=== PATIENT | female | born 1985 | race African-American/Black ===

== ENCOUNTER 2020-12-01 04:13 | Emergency (ER) | payer BC, OTHER, SELFPAY ==
[2020-12-01 04:16] VITALS: BP 125/77; PULSE 79; RESP 16; TEMP 36.3; O2SAT 100
[2020-12-01] MEDS: diphenhydrAMINE HCl CAP 25 MG CAPSULE PO (04:29)
--- NOTE | 2020-12-01 04:30 | ED.EAR ---
HPI - Ear Problem General Chief complaint: Ear Stated complaint: right ear ringing Time Seen by Provider: 12/01/20 04:17 History of Present Illness HPI Narrative: Patient is a 35-year-old female who presents ER with right ear pain. Began just in the last couple of hours. No fevers or chills or sweats. No drainage from the ear. Denies sinus congestion/sore throat/productive cough. No dizziness or difficulty walking. Related Data Allergies Allergy/AdvReac Type Severity Reaction Status Date / Time Penicillins Allergy Swelling Verified 12/01/20 04:25 of Lip/Tongue/Throat Review of Systems Constitutional: Constitutional: Denies chills and Denies fever(s) ENT: Denies dizziness, Denies nasal congestion and Denies sore throat Comments: Right ear pain with tinnitus Respiratory: Respiratory: Denies cough and Denies dyspnea PMFSH Past Medical History Medical History (Updated 12/01/20 @ 04:32 by Martin Kaufman MD) Healthy female adult Surgical History Surgical History (Updated 12/01/20 @ 04:32 by Martin Kaufman MD) No history of previous surgery Social History Social History (Updated 12/01/20 @ 04:33 by Martin Kaufman MD) Smoking status: Light tobacco smoker Alcohol intake: current Substance use: never Exam Narrative: Exam Narrative: GENERAL: Well-appearing, well-nourished, and in no acute distress. HEAD: Normocephalic, atraumatic. ENT: TMs normal bilaterally. Ear canals free of cerumen. Mucous membranes moist. NECK: Supple. NEURO: Alert and oriented x3. PSYCH: Normal mood and affect. Course Vital Signs Vital signs: Vital Signs Temperature 97.4 F L 12/01/20 04:16 Pulse Rate 79 12/01/20 04:16 Respiratory Rate 16 12/01/20 04:16 Blood Pressure 125/77 12/01/20 04:16 Pulse Oximetry 100 12/01/20 04:16 Temperature 97.4 F L 12/01/20 04:16 Pulse Rate 79 12/01/20 04:16 Respiratory Rate 16 12/01/20 04:16 Blood Pressure 125/77 12/01/20 04:16 Pulse Oximetry 100 12/01/20 04:16 Medical Decision Making Vital Signs Vital Signs: Vital Signs Temperature 97.4 F L 12/01/20 04:16 Pulse Rate 79 12/01/20 04:16 Respiratory Rate 16 12/01/20 04:16 Blood Pressure 125/77 12/01/20 04:16 Pulse Oximetry 100 12/01/20 04:16 Temperature 97.4 F L 12/01/20 04:16 Pulse Rate 79 12/01/20 04:16 Respiratory Rate 16 12/01/20 04:16 Blood Pressure 125/77 12/01/20 04:16 Pulse Oximetry 100 12/01/20 04:16 Discharge Plan Discharge Clinical Impression: Ear pain Patient Disposition: Home, Self-Care Condition: Stable Additional Instructions: Your ear pain is likely being caused by pressure from your eustachian tube not draining. Take antihistamines to help with your swelling. Return to the ER if you have fever over 100.4 ?F, you have worsening pain, you have additional concerns. Prescriptions: New loratadine [Claritin] 10 mg tablet 10 mg PO DAILY Qty: 14 RF: 0 Follow-up/Referrals: PHYSICIAN NOT ON STAFF,NONSTAFF [Primary Care Provider] - 1 Week
== END 2020-12-01 04:45 | disposition home or self-care (01) ==
LOC: ANHED 04:37
PROVIDERS: Emergency Provider Emergency Medicine; PCP Internal Medicine Infectious Disease
DX: H92.01 Otalgia, right ear (principal); F17.210 Nicotine dependence, cigarettes, uncomplicated
CPT/HCPCS: 99283; A9270

== ENCOUNTER 2024-12-28 16:36 | Emergency (ER) | payer OTHER, SELFPAY ==
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
[2024-12-28 16:49] VITALS: BP 118/78; PULSE 79; RESP 20; TEMP 36.8; O2SAT 100
== END 2024-12-28 17:21 | disposition home or self-care (01) ==
PROVIDERS: Emergency Provider Registered Nurse; PCP Internal Medicine Infectious Disease
DX: S46.812A Strain of other muscles, fascia and tendons at shoulder and upper arm level, left arm, initial encounter (principal); S46.811A Strain of other muscles, fascia and tendons at shoulder and upper arm level, right arm, initial encounter; V59.40XA Driver of pick-up truck or van injured in collision with unspecified motor vehicles in traffic accident, initial encounter; F17.210 Nicotine dependence, cigarettes, uncomplicated
CPT/HCPCS: 99213; G0463

== ENCOUNTER 2024-12-30 10:46 | Outpatient (CLI) | payer BC, MEDICAID, SELFPAY ==
--- NOTE | ~2024-12-30 | MMUS_ITS ---
EXAMINATION: MM diagnostic jacobo BI w tiffanie, US breast BI complete HISTORY: Palpable bilateral breast lumps TECHNIQUE: Additional 3-D tomosynthesis images of the breasts were performed and synthetic 2-D images were generated. CAD analysis was submitted and interpreted. High resolution bilateral complete breas t ultrasound was performed. COMPARISON: None BREAST PARENCHYMAL COMPOSITION: Dense: The breasts are heterogeneously dense, which may obscure small masses FINDINGS: MAMMOGRAPHIC FINDINGS: There are no suspicious masses, calcifications or architectural distortion in either breast to sugges t malignancy. ULTRASOUND: Complete US of all 4 quadrants of the breast/s and retroareolar region was reviewed. Small bilateral breast cysts. No suspicious sonographic abnormalities to suggest malignancy. IMPRESSION: 1. No evidence for malignancy in either breast. 2. Routine yearly screening mammogram and regular clinical breast examination are recommended. BI-RADS Category 2: Benign finding(s). Reviewed, dictated and finalized at location B. IMPRESSION: 1. No evidence for malignancy in either breast. 2. Routine yearly screening mammogram and regular clinical breast examination a re recommended. BI-RADS Category 2: Benign finding(s).
--- OUTSIDE RECORDS SUMMARY | 2024-12-30 10:50 | XMS_ITS | Data Portability ---
Author Organization [facility] Address [address] [place] [address] Care Team Providers Care Clinical Operations Manager Name Role Phone [facility] [employer] Attorney Assessment Encounter Date Assessment Date Assessment LastModified by Organization Details LastModified Time 03/29/2024 03/29/2024 The previous imaging studies and labs were normal, the DDX includes Fibromyalgia oajao Not available 03/29/2024 13:08:43 Plan of Treatment Reminders Order Date Submit Date Provider Last Modified By Organization Details Last Modified Time Details Appointments None recorde d. Lab IRENE (antinu clear antibod ies) screen, serum 2023 Likelii [facility], [address] [place] [address], [address], [place], [address], 15:11:38 CK (creati ne kinase) , total, serum 2023 Likelii [facility], [address] [place] [address], [address], [place], [address], 15:11:40 C reactiv e protein , QN, serum or plasma 2023 Likelii [facility], [address] [place] [address], [address], [place], [address], 15:11:46 ESR (erythr ocyte sedimen tation rate), blood 2023 ENRIQUE CHESTERRP, [address] [facility] [address], [address], [place], [address], 15:11:43 rf (rheuma toid factor) , serum 2023 ENRIQUE CHESTERRP, [facility], [address], [place], [address], 15:11:45 urinaly sis macro (dipsti ck) panel, urine 2023 ENRIQUE SONI, [facility], [address], [place], [address], 10:15:08 CBC 2023 ENRIQUE CHESTERRP, [facility], [address], [place], [address], 10:15:10 basic metabol ic 1998 panel, serum or plasma 2023 [facility], [address] [facility] [address], [address], [place], [address], 10:15:06 lipid panel, serum 2023 ENRIQUE [facility], [address] [place] [address], [address], [place], [address], 10:15:04 HbA1c (hemogl obin A1c), blood 2023 EN[facility]QUE [facility], [address] [facility] [address], [address], [place], [address], 15:11:41 TSH, ultra-s ensitiv e, serum 2023 024 ENRIQUE [facility], [address], [address], [place], [address], 4 15:11:42 IRENE (antinu clear antibod ies) screen, serum 2020 021 ENRIQUE [facility], [address], [address], [place], [address], 13:10:08 ESR (erythr ocyte sedimen tation rate), blood 2020 021 ENRIQUE [facility], [address], [address], [place], [address], 13:10:08 C reactiv e protein , QN, serum or plasma 2020 ENRIQUE [facility], [address], [address], [place], [address], 13:10:09 rf (rheuma toid factor) , serum 2020 021 ENRIQUE [facility], [address], [address], [place], [address], 13:10:07 lipid panel, serum 2020 021 ENRIQUE [facility], [address], [address], [place], [address], 13:10:06 CBC w/ auto diff 2020 ENRIQUE [facility], [address], [address], [place], [address], 13:10:05 CMP, serum or plasma 2020 021 [facility], [address] [facility] [address], [address], [place], [address], 1 13:10:05 CT + NG + TV, DNA, urine/s wab 2019 020 EN[facility], [address] [facility] [address], [address], [place], [address], 0 11:11:47 HIV 1+2 AB + HIV 1 p24 Ag, qualita tive immunoa ssay, serum 2019 020 EN[facility], [address] [facility] [address], [address], [place], [address], 0 11:11:50 RPR (rapid plasma reagin) , serum 2019 020 ENRIQUE VEDACO, [address] [facility] [address], [address], [place], [address], 0 11:11:49 HBsAg (hepati tis B surface Ag), EIA, serum 2019 020 [facility], [address] [facility] [address], [address], [place], [address], 0 11:11:51 hsv (1+2) igg Ab, serum 2019 020 ENRIQUE [facility], [address] [facility] [address], [address], [place], [address], 0 11:11:48 hepatit is C Ab, signal- to-cuto ff, serum or plasma 2019 020 ENRIQUE [facility], [address] [place], [place] [address], [address], [place], [address], 0 11:11:51 urinaly sis, dipstic k 2018 019 [email or web address] In-Office Order, Internal Use Only DO Not Attach Compendium DO Not Attach Compendium, Do Not Delete/merge, [id number] 16:46:39 CT + NG + TV, DNA, urine/s wab 2018 019 ENRIQUE [facility], [address] [facility], [address], [place], [address], 9 06:09:28 urinaly sis, dipstic k 2018 019 [email or web address] In-Office Order, Internal Use Only DO Not Attach Compendium DO Not Attach Compendium, Do Not Delete/merge, [id number] 18:01:15 unliste d lab - materni t21 plus core 2018 019 CHINLE [facility], [address] [place] [address], [address], [place], [address], 9 10:35:59 afp (alpha- fetopro tein) panel, materna l screen, serum 2018 019 CH[facility]LE [facility], [address] [facility], [address], [place], [address], 9 10:35:59 Referral None recorde d. Procedures None recorde d. Surgeries None recorde d. Imaging XR, cervica l spine - Worseni ng of her rght sided neck pain 2020 021 [facility] [address] [place], [address], 1 12:15:22 XR, knee - Knee pain 2020 021 [facility] ([facility]), [address] [place], [address], 1 12:19:28 XR, hip, bilater al - Pain 2020 021 [facility] ([facility]), [address] [place], [address], 1 12:13:28 [place], [facility] ic, 2nd trimest er 2018 019 [facility] ([facility]), [address] [place], [address], 9 15:40:01 Medication Orders cyclobe nzaprin e 5 mg tablet 2023 024 [facility], [address], [place], [id number], 4 11:15:36 metroni dazole 500 mg tablet 2019 020 [id number], [address], [place], [id number], 0 11:08:54 cyanoco balamin (vit B-12) 1,000 mcg/mL injecti on solutio n 2018 019 [email or web address] Not available 0 11:09:30 famotid ine 20 mg tablet 2018 019 [facility], [address], [place], [id number], 0 11:09:45 cyanoco balamin (vit B-12) 1,000 mcg/mL injecti on solutio n 2018 019 deldredsmith Not available 0 11:09:30 Patient TargetsNo targets recorded. Patient Instructions Encounter Date Encounter Id Patient Instructions Last Modified By Organization Details Last Modified Time 11/15/2018 [id number] extreme nausea a nd vomiting in : care instructions mwasserman Not available 11/15/2018 18:01:15 trichomoniasis: care instructions mwasserman Not available 11/15/2018 18:01:15 12/13/2018 [id number] extreme nausea a nd vomiting in : care instructions mwasserman Not available 12/13/2018 16:46:39 gastroesophageal reflux disease (GERD): care instructions mwasserman Not available 12/13/2018 18:05:16 01/11/2021 [id number] Labs Xrays PT Fo llow up in 6 weeks Covid vaccine at her local pharmacy oajao Not available 01/11/2021 14:57:48 03/29/2024 [id number] learning about healthy weight oajao Not available 03/29/2024 10:59:33 Labs Flexeril Fo llow up in 4 weeks oajao Not available 03/29/2024 11:15:58 Reason for Referral None Reported. Results Created Date Observation Date Name Description Value Unit Range Abnormal Flag Note LastModifiedBy Organization Detail LastModifiedTime 12/14/1912/13/2018 urina lysis , dipst ick Leukocytes Negati ve Not Available In-Office Order Internal Use Only DO Not Attach Compendium DO Not Attach Compendium, Do Not Delete/merge, [id number] 12/13/2018 16:05:02 12/14/1912/13/2018 urina lysis , dipst ick Nitrite negati ve Not Available In-Office Order Internal Use Only DO Not Attach Compendium DO Not Attach Compendium, Do Not Delete/merge, [id number] 12/13/2018 16:05:02 12/14/1912/13/2018 urina lysis , dipst ick Urobilinogen .2 Not Available In-Of fice Order Internal Use Only DO Not Attach Compendium DO Not Attach Compendium, Do Not Delete/merge, [id number] 12/13/2018 16:05:02 12/14/1912/13/2018 urina lysis , dipst ick Protein Negati ve Not Available In-Office Order Internal Use Only DO Not Attach Compendium DO Not Attach Compendium, Do Not Delete/merge, [id number] 12/13/2018 16:05:02 12/14/1912/13/2018 urina lysis , dipst ick pH 7.0 Not Available In-Office Order Internal Use Only DO Not Attach Compendium DO Not Attach Compendium, Do Not Delete/merge, [facility] 12/13/2018 16:05:02 12/14/1912/13/2018 urina lysis , dipst ick Blood Modera te Not Available In-Office Order Internal Use Only DO Not Attach Compendium DO Not Attach Compendium, Do Not Delete/merge, [facility] 12/13/2018 16:05:02 12/14/1912/13/2018 urina lysis , dipst ick Specific [place] 1.025 Not Available In-Off ice Order Internal Use Only DO Not Attach Compendium DO Not Attach Compendium, Do Not Delete/merge, [facility] 12/13/2018 16:05:02 12/14/1912/13/2018 urina lysis , dipst ick Ketone Negati ve Not Available In-Office Order Internal Use Only DO Not Attach Compendium DO Not Attach Compendium, Do Not Delete/merge, [facility] 12/13/2018 16:05:02 12/14/1912/13/2018 urina lysis , dipst ick Bilirubin Negati ve Not Available In-Office Order Internal Use Only DO Not Attach Compendium DO Not Attach Compendium, Do Not Delete/merge, [facility] 12/13/2018 16:05:02 12/14/1912/13/2018 urina lysis , dipst ick Glucose Negati ve Not Available In-Office Order Internal Use Only DO Not Attach Compendium DO Not Attach Compendium, Do Not Delete/merge, [facility] 12/13/2018 16:05:02 11/16/1911/15/2018 urina lysis , dipst ick Leukocytes Negati ve Not Available In-Office Order Internal Use Only DO Not Attach Compendium DO Not Attach Compendium, Do Not Delete/merge, [facility] 11/15/2018 17:31:57 11/16/1911/15/2018 urina lysis , dipst ick Nitrite negati ve Not Available In-Office Order Internal Use Only DO Not Attach Compendium DO Not Attach Compendium, Do Not Delete/merge, [facility] 11/15/2018 17:31:57 11/16/19 19 11/15/2018 urina lysis , dipst ick Urobilinogen .2 Not Available In-Of fice Order Internal Use Only DO Not Attach Compendium DO Not Attach Compendium, Do Not Delete/merge, [facility] 11/15/2018 17:31:57 11/16/19 19 11/15/2018 urina lysis , dipst ick Protein Negati ve Not Available In-Office Order Internal Use Only DO Not Attach Compendium DO Not Attach Compendium, Do Not Delete/merge, [facility] 11/15/2018 17:31:57 11/16/19 19 11/15/2018 urina lysis , dipst ick pH 7.0 Not Available In-Office Order Internal Use Only DO Not Attach Compendium DO Not Attach Compendium, Do Not Delete/merge, [facility] 11/15/2018 17:31:57 11/16/19 19 11/15/2018 urina lysis , dipst ick Blood Modera te Not Available In-Office Order Internal Use Only DO Not Attach Compendium DO Not Attach Compendium, Do Not Delete/merge, [facility] 11/15/2018 17:31:57 11/16/1911/15/2018 urina lysis , dipst ick Specific [place] 1.030 Not Available In-Off ice Order Internal Use Only DO Not Attach Compendium DO Not Attach Compendium, Do Not Delete/merge, [facility] 11/15/2018 17:31:57 11/16/19 19 11/15/2018 urina lysis , dipst ick Ketone Negati ve Not Available In-Office Order Internal Use Only DO Not Attach Compendium DO Not Attach Compendium, Do Not Delete/merge, [facility] 11/15/2018 17:31:57 11/16/19 19 11/15/2018 urina lysis , dipst ick Bilirubin Small Not Available In-Offic e Order Internal Use Only DO Not Attach Compendium DO Not Attach Compendium, Do Not Delete/merge, [facility] 11/15/2018 17:31:57 11/16/19 19 11/15/2018 urina lysis , dipst ick Glucose Negati ve Not Available In-Office Order Internal Use Only DO Not Attach Compendium DO Not Attach Compendium, Do Not Delete/merge, [id number] 11/15/2018 17:31:57 10/19/19 19 10/18/2018 urina lysis , dipst ick Leukocytes Negati ve Not Available In-Office Order Internal Use Only DO Not Attach Compendium DO Not Attach Compendium, Do Not Delete/merge, [id number] 10/18/2018 16:25:21 10/19/1910/18/2018 urina lysis , dipst ick Nitrite negati ve Not Available In-Office Order Internal Use Only DO Not Attach Compendium DO Not Attach Compendium, Do Not Delete/merge, [facility] 10/18/2018 16:25:21 10/19/1910/18/2018 urina lysis , dipst ick Urobilinogen .2 Not Available In-Of fice Order Internal Use Only DO Not Attach Compendium DO Not Attach Compendium, Do Not Delete/merge, [facility] 10/18/2018 16:25:21 10/19/1910/18/2018 urina lysis , dipst ick Protein Negati ve Not Available In-Office Order Internal Use Only DO Not Attach Compendium DO Not Attach Compendium, Do Not Delete/merge, [facility] 10/18/2018 16:25:21 10/19/1910/18/2018 urina lysis , dipst ick pH 6.0 Not Available In-Office Order Internal Use Only DO Not Attach Compendium DO Not Attach Compendium, Do Not Delete/merge, [facility] 10/18/2018 16:25:21 10/19/1910/18/2018 urina lysis , dipst ick Blood Large Not Available In-Office Order Internal Use Only DO Not Attach Compendium DO Not Attach Compendium, Do Not Delete/merge, [facility] 10/18/2018 16:25:21 10/19/1910/18/2018 urina lysis , dipst ick Specific [place] 1.030 Not Available In-Off ice Order Internal Use Only DO Not Attach Compendium DO Not Attach Compendium, Do Not Delete/merge, [facility] 10/18/2018 16:25:21 10/19/1910/18/2018 urina lysis , dipst ick Ketone Trace Not Available In-Office Order Internal Use Only DO Not Attach Compendium DO Not Attach Compendium, Do Not Delete/merge, [id number] 10/18/2018 16:25:21 10/19/1910/18/2018 urina lysis , dipst ick Bilirubin Negati ve Not Available In-Office Order Internal Use Only DO Not Attach Compendium DO Not Attach Compendium, Do Not Delete/merge, [id number] 10/18/2018 16:25:21 10/19/1910/18/2018 urina lysis , dipst ick Glucose Negati ve Not Available In-Office Order Internal Use Only DO Not Attach Compendium DO Not Attach Compendium, Do Not Delete/merge, [id number] 10/18/2018 16:25:21 11/16/1911/17/2018 CT + NG + TV, DNA, urine /swab chlamydia by SHARRI Negati ve negati ve Not Available [facility] ([facility]) [address] [place] [address], [address], 11/18/2018 06:09:27 11/16/19 19 11/17/2018 CT + NG + TV, DNA, urine /swab gonococcus by SHARRI Negati ve negati ve Not Available [facility] ([facility]) [address] [place] [address], [address], 11/18/2018 06:09:27 11/16/19 19 11/17/2018 CT + NG + TV, DNA, urine /swab trich vag by SHARRI Negati ve negati ve Not Available [facility] ([facility]) [address] [place] [address], [address], 11/18/2018 06:09:27 11/20/1911/19/2018 afp (alph a-fet oprot ein) panel , mater nal scree n, serum comments: Sohail danielle, Ph.D. , FACMG Princ ipal Eddie ics Techn ical Direc tor Refer ences : Avail able Upon Reque st. Multi ples Of Media n Cutof fs Abbre viati on Defin ition s For AFP [place] tions IDD- Insul in Dep Diabe sarah Singl eton 2.5 Black 2.8 OSBR- Open Spina Bifid a IDD 2.0 Twins 4.5 Risk DSR Cutof f 1:270 DSR- Down Syndr ome Risk T18 Cutof f 1:100 T18- Triso my 18 Down Syndr ome and Triso my 18 scree ema are consi dered Inves tigat ional For critical access hospital er inqui april conta ct [facility] Eddie ics Servi yanet at [phone] GENE. Not Available [facility] ([facility]) [address] [facility], [place], [address], 11/27/2018 10:35:58 11/20/1911/27/2018 afp (alph a-fet oprot ein) panel , mater nal scree n, serum results Report Not Available [facility] ([facility]) [address] [place], [address], 11/27/2018 10:35:58 11/20/1911/27/2018 afp (alph a-fet oprot ein) panel , mater nal scree n, serum test results: *Scree n Negati ve* Not Available [facility] ([facility]) [address] [facility], [place], [address], 11/27/2018 10:35:58 11/20/1911/27/2018 afp (alph a-fet oprot ein) panel , mater nal scree n, serum gest. age on collection date 16.4 weeks Not Available [facility] ([facility]) [address] [place], [address], 11/27/2018 10:35:58 11/20/1911/27/2018 afp (alph a-fet oprot ein) panel , mater nal scree n, serum gestat. age based on UCHE 05/03 Not Available [facility] ([facility]) [address] [place], [address], 11/27/2018 10:35:58 11/20/19 19 11/27/2018 afp (alph a-fet oprot ein) panel , mater nal scree n, serum [age] uche [age] Not Available [facility] ([facility]) [address] [place], [address], 11/27/2018 10:35:58 11/20/1911/27/2018 afp (alph a-fet oprot ein) panel , mater nal scree n, serum race Black Not Available [facility] ([facility]) [address] [place], [address], 11/27/2018 10:35:58 11/20/1911/27/2018 afp (alph a-fet oprot ein) panel , mater nal scree n, serum weight 187 lbs Not Available [facility] ([facility]) [address] [place], [address], 11/27/2018 10:35:58 11/20/1911/27/2018 afp (alph a-fet oprot ein) panel , mater nal scree n, serum insulin dep diabetes No Not Available [facility] ([facility]) [address] [place], [address], 11/27/2018 10:35:58 11/20/1911/27/2018 afp (alph a-fet oprot ein) panel , mater nal scree n, serum multiple gestation No Not Available [facility] ([facility]) [address] [place], [address], 11/27/2018 10:35:58 11/20/1911/27/2018 afp (alph a-fet oprot ein) panel , mater nal scree n, serum AFP value 47.8 NG/mL Not Available [facility] ([facility]) [address] [place], [address], 11/27/2018 10:35:58 11/20/1911/27/2018 afp (alph a-fet oprot ein) panel , mater nal scree n, serum AFP MOM 1.46 Not Available [facility] ([facility]) [address] [place], [address], 11/27/2018 10:35:58 11/20/1911/27/2018 afp (alph a-fet oprot ein) panel , mater nal scree n, serum HCG value 19843 mIU/m L Not Available [facility] ([facility]) [address] [place], [address], 11/27/2018 10:35:58 11/20/1911/27/2018 afp (alph a-fet oprot ein) panel , mater nal scree n, serum HCG MOM 0.41 Not Available [facility] ([facility]) [address] [place], [address], 11/27/2018 10:35:58 11/20/1911/27/2018 afp (alph a-fet oprot ein) panel , mater nal scree n, serum UE3 value 1.23 NG/mL Not Available [facility] ([facility]) [address] [place], [address], 11/27/2018 10:35:58 11/20/1911/27/2018 afp (alph a-fet oprot ein) panel , mater nal scree n, serum UE3 MOM 1.45 Not Available [facility] ([facility]) [address] [place] [address], [address], 11/27/2018 10:35:58 11/20/1911/27/2018 afp (alph a-fet oprot ein) panel , mater nal scree n, serum EJ value 122.10 pg/mL Not Available [facility] ([facility]) [address] [place] [address], [address], 11/27/2018 10:35:58 11/20/1911/27/2018 afp (alph a-fet oprot ein) panel , mater nal scree n, serum EJ MOM 0.81 Not Available [facility] ([facility]) [address] [place], [address], 11/27/2018 10:35:58 11/20/19 19 11/27/2018 afp (alph a-fet oprot ein) panel , mater nal scree n, serum OSBR risk 1 in 6095 Not Available [facility] ([facility]) [address] [place], [address], 11/27/2018 10:35:58 11/20/1911/27/2018 afp (alph a-fet oprot ein) panel , mater nal scree n, serum DSR (second trimester) 1 in [address] Not Available [facility] ([facility]) [address] [place], [address], 11/27/2018 10:35:58 11/20/1911/27/2018 afp (alph a-fet oprot ein) panel , mater nal scree n, serum DSR (by age) 1 in 493 Not Available [facility] ([facility]) [address] [place], [address], 11/27/2018 10:35:58 11/20/1911/27/2018 afp (alph a-fet oprot ein) panel , mater nal scree n, serum T18 risk Not increa sed Not Available [facility] ([facility]) [address] [place], [address], 11/27/2018 10:35:58 11/20/1911/27/2018 afp (alph a-fet oprot ein) panel , mater nal scree n, serum T18 (by age) 1:1921 Not Available [facility] ([facility]) [address] [place], [address], 11/27/2018 10:35:58 11/20/1911/27/2018 afp (alph a-fet oprot ein) panel , mater nal scree n, serum interpretati on Commen t Inter preta tion: Scree n Negat kevin This resul t is scree n negat kevin for OSB, Down Syndr ome and Triso my 18. The AFP MoM and patie nt speci fic risks calcu lated are based on the gesta yen l age and the clini zeina infor matio n provi ded. This test can ident tennille up to 80% of open neura l tube defec ts. Close d neura l tube defec ts and some open defec ts may not be detec chandu by this test. The combi natio n of mater nal age, AFP, hCG, uE3, and EJ ident ifies 75-80 % of Down Syndr ome. The combi natio n of mater nal age, AFP, hCG and uE3 ident ifies 60% of Triso my 19 pregn ancie s. The Ameri can Colle ge of Obste trici ans and Gynec ologi sts recom mends amnio cente sis be offer ed to women age 35 and older . Recal culat ions are not recom jax d when gesta yen l datin g by LMP and ultra sound are withi n 10 days. Not Available [facility] ([facility]) [address] [facility], [place], [address], 11/27/2018 10:35:58 11/20/1911/27/2018 afp (alph a-fet oprot ein) panel , mater nal scree n, serum pdf . Not Available [facility] ([facility]) [address] [place], [address], 11/27/2018 10:35:58 11/20/1911/25/2018 mater nit21 plus core chromosome 21 Negati ve Not Available [facility] [address] [facility], [place], [address], 11/27/2018 10:35:59 11/20/19 19 11/25/2018 mater nit21 plus core chromosome 18 Negati ve Not Available [facility] [address] [facility] [place], [address], 11/27/2018 10:35:59 11/20/19 19 11/25/2018 mater nit21 plus core chromosome 13 Negati ve Not Available [facility] [address] [facility], [place], [address], 11/27/2018 10:35:59 11/20/19 19 11/25/2018 mater nit21 plus core interpretati on Commen t This speci men showe d an expec chandu repre senta tion of chrom osome 21, 18 and 13 mater ial. Clini zeina corre latio n is apolonia garcia. Not Available [facility] [address] [facility], [place], [address], 11/27/2018 10:35:59 11/20/19 19 11/25/2018 mater nit21 plus core Y chromosome Not Detect ed Not Available [facility] [address] [facility], [place], [address], 11/27/2018 10:35:59 11/20/19 19 11/25/2018 mater nit21 plus core Y chromosome interpretati on Commen t Consi stent with a femal e fetus . Not Available [facility] [address] [facility], [place], [address], 11/27/2018 10:35:59 11/20/1911/25/2018 mater nit21 plus core additional findings N/A Not Available [facility] [address] [facility], [place], [address], 11/27/2018 10:35:59 11/20/1911/25/2018 mater nit21 plus core add'l findings interpretati on N/A Not Available [facility] [address] [facility], [place], [address], 11/27/2018 10:35:59 11/20/19 19 11/25/2018 mater nit21 plus core additional findings note N/A Not Available [facility] [address] [facility], [place], [address], 11/27/2018 10:35:59 11/20/19 19 11/25/2018 mater nit21 plus core garden labourer comments Sohail calle Fract ion: 4% Not Available [facility] [address] [facility], [place], [address], 11/27/2018 10:35:59 11/20/19 19 11/25/2018 mater nit21 plus core approved by Sohail ferreira MD, PhD Not Available [facility] [address] [facility], [place], [address], 11/27/2018 10:35:59 11/20/1911/25/2018 mater nit21 plus core test method Commujs calle Circu latin g cell- free DNA was purif ied from the plasm a compo nent of mater nal blood . The extra cted DNA was then conve rted into a [employer] DNA felix ry for aneup loidy brianne sis of chrom osome s 21, 18, and 13 via next gener ation seque ncing .[1] Optio nal findi ngs based on the test order inclu de sex chrom osome aneup loidy (SCA) , and enhan nilson seque ncing serie s (ESS) , which will only be repor chandu on as an addit ional findi ng when an abnor malit y is detec chandu. SCA testi ng inclu doris infor matio n on X and Y repre senta tion, while ESS testi ng inclu doris delet ions in selec chandu regio ns (22q, 15q, 11q, 8q, 5p, 4p, 1p) and triso my of chrom osome s 16 and 22. Not Available [facility] [address] [facility], [place], [address], 11/27/2018 10:35:59 11/20/1911/25/2018 mater nit21 plus core about the test Commen t The Mater niT(R ) 21 PLUS labor atory -deve loped test (LDT) brianne zes circu latin g cell- free DNA from a mater nal blood sampl e. The test is indic ated for use in pregn ant women with incre ased risk for chrom osoma l aneup loidy . Valid ation data on twin pregn ancie s is limit ed and the abili ty of this test to detec t aneup loidy in a tripl et pregn andria has not yet been valid ated. Not Available [facility] [address] [facility], [place], [address], 11/27/2018 10:35:59 11/20/1911/25/2018 mater nit21 plus core performance Commen t The perfo rmanc e connor cteri stics of the Mater niT(R ) 21 PLUS labor atory -deve loped test (LDT) have been deter mined in a clini zeina valid ation study with pregn ant women at incre ased risk for chrom osoma l aneup loidy .[1,2 ] Not Available [facility] [address] [facility], [place], [address], 11/27/2018 10:35:59 11/20/1911/25/2018 mater nit21 plus core performance data Commen t Triso my 21 Sensi tivit y: 99.1% ; CI: 96.3- 99.8% Triso my 21 Speci ficit y: 99.9% ; CI: 99.6- 99.9% Triso my 18 Sensi tivit y: >99.9 %; CI: 92.4- 100.0 % Triso my 18 Speci ficit y: 99.6% ; CI: 99.2- 99.8% Triso my 13 Sensi tivit y: 91.7% ; CI: 59.7- 99.6% Triso my 13 Speci ficit y: 99.7% ; CI: 99.3- 99.9% Y Chrom osome Accur acy: 99.4% ; CI: 99.0- 99.6% Not Available [facility] [address] [facility], [place], [address], 11/27/2018 10:35:59 11/20/1911/25/2018 mater nit21 plus core limitations of the test Commen t While the resul ts of these tests are highl y accur ate, disco rdant resul ts, inclu ding inacc urate sex predi ction , may occur due to place ntal, mater nal, or mosai cism or neopl asm; vanis jama twin; prior mater nal organ trans plant ; or other cause s. Sex chrom osoma l aneup loidi es are not repor table for known multi ple gesta tions . These tests are scree ema tests and not diagn ostic ; they do not repla ce the accur acy and preci micheal of prena carlos diagn osis with [facility] or amnio cente sis. A patie nt with a posit kevin test resul t shoul d be refer red for eddie ic couns eling and offer ed invas kevin prena carlos diagn osis for confi rmati on of test resul ts.[3 ] A negat kevin resul t does not ensur e an unaff ected pregn andria nor does it exclu de the possi bilit y of other chrom osoma l abnor malit ies or defec ts which are not a part of these tests . An uninf ormat kevin resul t may be repor chandu, the cause s of which may inclu de, but are not limit ed to, insuf ficie nt seque ncing cover age, noise or artif acts in the regio n, ampli ficat ion or seque ncing bias, or insuf ficie nt fract ion. These tests are not inten ded to ident tennille pregn ancie s at risk for neura l tube defec ts or ventr al wall defec ts. Testi ng for whole chrom osome abnor malit ies (incl uding sex chrom osome s) and for subch romos omal abnor malit ies could lead to the poten tial disco very of both and mater nal genom ic abnor malit ies that could have major , minor , or no, clini zeina signi fican ce. Evalu ating the signi fican ce of a posit kevin or a non-r eport able resul t may invol ve both invas kevin testi ng and addit ional studi es on the mothe r. Such inves tigat ions may lead to a diagn osis of mater nal chrom osoma l or subch romos omal abnor malit ies, which on occas ion may be assoc iated with benig n or malig nant mater nal neopl asms. These tests may not accur ately ident tennille tripl oidy, naveed nilson rearr angem ents, or the preci se locat ion of subch romos omal dupli catio ns or delet ions; these may be detec chandu by prena carlos diagn osis with [facility] or amnio cente sis. The abili ty to repor t resul ts may be impac chandu by mater nal BMI, mater nal weigh t, mater nal syste venkata lupus eryth emato bebeto (SLE) and/o r by certa in pharm aceut ical agent s such as low molec ular weigh t hepar in (for examp le: Loven ox(R) , Xapar in(R) , Clexa ne(R) and Fragm in(R) ). The resul ts of this testi ng, inclu ding the benef its and limit ation s, shoul d be discu ssed with a quali fied healt hcare provi brennon. Pregn andria manag ement decis ions, inclu ding termi natio n of the pregn andria, shoul d not be based on the resul ts of these tests alone . The healt hcare provi brennon is respo nsibl e for the use of this infor matio n in the manag ement of their patie nt. Not Available [facility] [address] [facility], [place], [address], 11/27/2018 10:35:59 11/20/19 19 11/25/2018 mater nit21 plus core note Commen t This test was devel oped and its perfo rmanc e connor cteri stics deter mined by [employer]. It has not been clear ed or appro shannan by the Food and Drug Admin istra tion. This test is used for clini zeina purpo ses. It shoul d not be regar ded as inves tigat ional or for resea rch. This labor atory is certi fied under the Clini zeina Labor atory Impro vemen t Amend ments (CLIA ) as quali fied to perfo rm high compl exity clini zeina labor atory testi ng and accre dited by the Darline tatum of Atul can Patho logis ts (CAP) . This speci men will be saved until term and can be re-se quenc ed using the more compr ehens kevin scree ema test, Mater niT(R ) GENOM E, accor ding to clini zeina need. [facility] sampl es will not be retai lorie beyon d 60 days. [facility] patie nts will have to send a new sampl e for re-se quenc ing ([facility] Test Code: 89007 4). Not Available [facility] [address] [facility], [place], [address], 11/27/2018 10:35:59 11/20/19 19 11/25/2018 mater nit21 plus core references Commen t 1. Jewels TATUM, et al. Eddie Med. 2012; 14(3) :296- 305. 2. Jewels TATUM, et al. Eddie Med. 2011; 13(11 ):913 -920. 3. ACOG/ SMFM Joint Commi ttee Opini on No. 545, May 2012. Not Available [facility] [address] [facility], [place], [address], 11/27/2018 10:35:59 11/20/19 19 11/25/2018 mater nit21 plus core pdf . Not Available [employer] [address] [facility], [place], [address], 11/27/2018 10:35:59 05/18/20 20 05/22/2020 CT + NG + TV, DNA, urine /swab chlamydia by SHARRI Negati ve negati ve Not Available [facility] ([facility]) [address] [facility], [place], [address], 05/22/2020 11:11:47 05/18/2005/22/2020 CT + NG + TV, DNA, urine /swab gonococcus by SHARRI Negati ve negati ve Not Available [facility] ([facility]) [address] [facility], [place], [address], 05/22/2020 11:11:47 05/18/2005/22/2020 CT + NG + TV, DNA, urine /swab trich vag by SHARRI Negati ve negati ve Not Available [facility] ([facility]) [address] [facility], [place], [address], 05/22/2020 11:11:47 05/18/20 20 05/19/2020 hsv (1+2) igg Ab, serum hsv 1 IgG, type spec >62.20 index 0.00-0 .90 above high normal Negat kevin <0.91 Equiv ocal 0.91 - 1.09 Posit kevin >1.09 Note: Negat kevin indic ates no antib odies detec chandu to HSV-1 . Equiv ocal may sugge st early infec tion. If clini tommy appro priat e, retes t at later date. Posit kevin indic ates antib odies detec chandu to HSV-1 . Not Available [facility] ([facility]) [address] [facility], [place], [address], 05/22/2020 11:11:48 05/18/20 20 05/19/2020 hsv (1+2) igg Ab, serum hsv 2 IgG, type spec <0.91 index 0.00-0 .90 Negat kevin <0.91 Equiv ocal 0.91 - 1.09 Posit kevin >1.09 Note: Negat kevin indic ates no antib odies detec chandu to HSV-2 . Equiv ocal may sugge st early infec tion. If clini tommy appro priat e, retes t at later date. Posit kevin indic ates antib odies detec chandu to HSV-2 . Not Available [facility] ([facility]) [address] [facility], [place], [address], 05/22/2020 11:11:48 05/18/20 20 05/19/2020 RPR (rapi d plasm a reagi n), serum RPR Non Reacti ve non reacti ve Not Available [facility] ([facility]) [address] [facility], [place], [address], 05/22/2020 11:11:49 05/18/2005/19/2020 HIV 1+2 AB + HIV 1 p24 Ag, quali tativ e immun oassa y, serum HIV screen 4TH generation wrfx Non Reacti ve non reacti ve Not Available [facility] ([facility]) [address] [facility], [place], [address], 05/22/2020 11:11:50 05/18/2005/19/2020 hepat itis C Ab, signa l-to- cutof f, serum or plasm a HCV Ab <0.1 s/co_ ratio 0.0-0. 9 Not Available [facility] ([facility]) [address] [facility], [place], [address], 05/22/2020 11:11:51 05/18/2005/19/2020 hepat itis C Ab, signa l-to- cutof f, serum or plasm a comment: Commen t Non react kevin HCV antib magno scree n is consi stent with no HCV infec tion, unles s recen t infec tion is suspe cted or other evide nce exist s to indic ate HCV infec tion. Eff ectiv e Janua ry 2020 HCV Ab w/Rfl x to Verif icati on will be made non-o rdera ble. [facility] offer s order code [id number] HCV Antib magno refle x to SHARRI. Not Available [facility] ([facility]) [address] [facility], [place], [address], 05/22/2020 11:11:51 05/18/2005/19/2020 HBsAg (hepa titis B surfa ce Ag), EIA, serum HBsAg screen Negati ve negati ve Not Available [facility] ([facility]) [address] [facility], [place], [address], 05/22/2020 11:11:51 01/31/20 21 01/31/2021 CBC WITH DIFFE RENTI AL/PL ATELE T WBC 4.1 x10e3 /uL 3.4-10 .8 normal Not Available [facility] ([facility]) [address] [place], [address], 01/31/2021 13:10:04 01/31/2001/31/2021 CBC WITH DIFFE RENTI AL/PL ATELE T RBC 3.92 x10e6 /uL 3.77-5 .28 normal Not Available [facility] ([facility]) [address] [place], [address], 01/31/2021 13:10:04 01/31/2001/31/2021 CBC WITH DIFFE RENTI AL/PL ATELE T hemoglobin 12.0 g/dL 11.1-1 5.9 normal Not Available [facility] ([facility]) [address] [place], [address], 01/31/2021 13:10:04 01/31/2001/31/2021 CBC WITH DIFFE RENTI AL/PL ATELE T hematocrit 36.6 % 34.0-4 6.6 normal Not Available [facility] ([facility]) [address] [place], [address], 01/31/2021 13:10:04 01/31/20 21 01/31/2021 CBC WITH DIFFE RENTI AL/PL ATELE T MCV 93 fL 79-97 normal Not Available [facility] ([facility]) [address] [place], [address], 01/31/2021 13:10:04 01/31/2001/31/2021 CBC WITH DIFFE RENTI AL/PL ATELE T MCH 30.6 pg 26.6-3 3.0 normal Not Available [facility] ([facility]) [address] [place], [address], 01/31/2021 13:10:04 01/31/20 21 01/31/2021 CBC WITH DIFFE RENTI AL/PL ATELE T MCHC 32.8 g/dL 31.5-3 5.7 normal Not Available [facility] ([facility]) [address] [place], [address], 01/31/2021 13:10:04 01/31/20 21 01/31/2021 CBC WITH DIFFE RENTI AL/PL ATELE T RDW 13.5 % 11.7-1 5.4 normal Not Available [facility] ([facility]) [address] [facility], [place], [address], 01/31/2021 13:10:04 01/31/20 21 01/31/2021 CBC WITH DIFFE RENTI AL/PL ATELE T platelets 206 x10e3 /uL 150-45 0 normal Not Available [facility] ([facility]) [address] [facility], [place], [address], 01/31/2021 13:10:04 01/31/20 21 01/31/2021 CBC WITH DIFFE RENTI AL/PL ATELE T neutrophils 54 % not estab. normal Not Available [facility] ([facility]) [address] [place], [address], 01/31/2021 13:10:04 01/31/20 21 01/31/2021 CBC WITH DIFFE RENTI AL/PL ATELE T lymphs 34 % not estab. normal Not Available [facility] ([facility]) [address] [place], [address], 01/31/2021 13:10:04 01/31/20 21 01/31/2021 CBC WITH DIFFE RENTI AL/PL ATELE T monocytes 7 % not estab. normal Not Available [facility] ([facility]) [address] [place], [address], 01/31/2021 13:10:04 01/31/20 21 01/31/2021 CBC WITH DIFFE RENTI AL/PL ATELE T eos 4 % not estab. normal Not Available [facility] ([facility]) [address] [place], [address], 01/31/2021 13:10:04 01/31/20 21 01/31/2021 CBC WITH DIFFE RENTI AL/PL ATELE T basos 1 % not estab. normal Not Available [facility] ([facility]) [address] [place], [address], 01/31/2021 13:10:04 01/31/2001/31/2021 CBC WITH DIFFE RENTI AL/PL ATELE T immature cells RETAIL OFFICE MANAGER normal Not Available [facility] ([facility]) [address] [place], [address], 01/31/2021 13:10:04 01/31/20 21 01/31/2021 CBC WITH DIFFE RENTI AL/PL ATELE T neutrophils (absolute) 2.2 x10e3 /uL 1.4-7. 0 normal Not Available [facility] ([facility]) [address] [place], [address], 01/31/2021 13:10:04 01/31/2001/31/2021 CBC WITH DIFFE RENTI AL/PL ATELE T lymphs (absolute) 1.4 x10e3 /uL 0.7-3. 1 normal Not Available [facility] ([facility]) [address] [place], [address], 01/31/2021 13:10:04 01/31/2001/31/2021 CBC WITH DIFFE RENTI AL/PL ATELE T monocytes(ab solute) 0.3 x10e3 /uL 0.1-0. 9 normal Not Available [facility] ([facility]) [address] [place], [address], 01/31/2021 13:10:04 01/31/20 21 01/31/2021 CBC WITH DIFFE RENTI AL/PL ATELE T eos (absolute) 0.2 x10e3 /uL 0.0-0. 4 normal Not Available [facility] ([facility]) [address] [facility], [place], [address], 01/31/2021 13:10:04 01/31/20 21 01/31/2021 CBC WITH DIFFE RENTI AL/PL ATELE T baso (absolute) 0.0 x10e3 /uL 0.0-0. 2 normal Not Available [facility] ([facility]) [address] [facility], [place], [address], 01/31/2021 13:10:04 01/31/20 21 01/31/2021 CBC WITH DIFFE RENTI AL/PL ATELE T immature granulocytes 0 % not estab. normal Not Available [facility] ([facility]) [address] [facility], [place], [address], 01/31/2021 13:10:04 01/31/20 21 01/31/2021 CBC WITH DIFFE RENTI AL/PL ATELE T immature grans (abs) 0.0 x10e3 /uL 0.0-0. 1 normal Not Available [facility] ([facility]) [address] [facility], [place], [address], 01/31/2021 13:10:04 01/31/20 21 01/31/2021 CBC WITH DIFFE RENTI AL/PL ATELE T NRBC RETAIL OFFICE MANAGER normal Not Available [facility] ([facility]) [address] [place], [address], 01/31/2021 13:10:04 01/31/20 21 01/31/2021 CBC WITH DIFFE RENTI AL/PL ATELE T hematology comments: RETAIL OFFICE MANAGER normal Not Available [facility] ([facility]) [address] [place], [address], 01/31/2021 13:10:04 01/31/20 21 01/31/2021 COMP. METAB OLIC PANEL (14) glucose 85 mg/dL 65-99 normal Not Available [facility] ([facility]) [address] [place], [address], 01/31/2021 13:10:05 01/31/20 21 01/31/2021 COMP. METAB OLIC PANEL (14) BUN 9 mg/dL 6-20 normal Not Available [facility] ([facility]) [address] [place], [address], 01/31/2021 13:10:05 01/31/20 21 01/31/2021 COMP. METAB OLIC PANEL (14) creatinine 0.74 mg/dL 0.57-1 .00 normal Not Available [facility] ([facility]) [address] [place], [address], 01/31/2021 13:10:05 01/31/20 21 01/31/2021 COMP. METAB OLIC PANEL (14) eGFR if nonafricn AM 106 mL/mi n/1.7 3 >59 normal Not Available [facility] ([facility]) [address] [facility], [place], [address], 01/31/2021 13:10:05 01/31/20 21 01/31/2021 COMP. METAB OLIC PANEL (14) eGFR if africn AM 122 mL/mi n/1.7 3 >59 normal Lab nayely curre ntly repor ts eGFR in compl iance with the curre nt recom menda tions of the [employer] n[facility] [employer] [employer] ation . [facility] will updat e repor ting as new guide lines are publi shed from the NKF-A SN Task force . Not Available [facility] ([facility]) [address] [place], [address], 01/31/2021 13:10:05 01/31/20 21 01/31/2021 COMP. METAB OLIC PANEL (14) BUN/creatini ne ratio 12 9-23 normal Not Available [facility] ([facility]) [address] [facility] [place], [address], 01/31/2021 13:10:05 01/31/20 21 01/31/2021 COMP. METAB OLIC PANEL (14) sodium 141 mmol/ L 134-14 4 normal Not Available [facility] ([facility]) [address] [facility] [place], [address], 01/31/2021 13:10:05 01/31/20 21 01/31/2021 COMP. METAB OLIC PANEL (14) potassium 4.1 mmol/ L 3.5-5. 2 normal Not Available [facility] ([facility]) [address] [facility] [place], [address], 01/31/2021 13:10:05 01/31/20 21 01/31/2021 COMP. METAB OLIC PANEL (14) chloride 107 mmol/ L 96-106 above high normal Not Available [facility] ([facility]) [address] [facility] [place], [address], 01/31/2021 13:10:05 01/31/20 21 01/31/2021 COMP. METAB OLIC PANEL (14) carbon dioxide, total 25 mmol/ L 20-29 normal Not Available [facility] ([facility]) [address] [facility] [place], [address], 01/31/2021 13:10:05 01/31/20 21 01/31/2021 COMP. METAB OLIC PANEL (14) calcium 9.1 mg/dL 8.7-10 .2 normal Not Available [facility] ([facility]) [address] [facility] [place], [address], 01/31/2021 13:10:05 01/31/20 21 01/31/2021 COMP. METAB OLIC PANEL (14) protein, total 6.7 g/dL 6.0-8. 5 normal Not Available [facility] ([facility]) [address] [facility] [place], [address], 01/31/2021 13:10:05 01/31/20 21 01/31/2021 COMP. METAB OLIC PANEL (14) albumin 4.1 g/dL 3.8-4. 8 normal Not Available [facility] ([facility]) [address] [facility] [place], [address], 01/31/2021 13:10:05 01/31/20 21 01/31/2021 COMP. METAB OLIC PANEL (14) globulin, total 2.6 g/dL 1.5-4. 5 normal Not Available [facility] ([facility]) [address] [facility] [place], [address], 01/31/2021 13:10:05 01/31/20 21 01/31/2021 COMP. METAB OLIC PANEL (14) A/G ratio 1.6 1.2-2. 2 normal Not Available [facility] ([facility]) [address] [facility] [place], [address], 01/31/2021 13:10:05 01/31/20 21 01/31/2021 COMP. METAB OLIC PANEL (14) bilirubin, total 0.4 mg/dL 0.0-1. 2 normal Not Available [facility] ([facility]) [address] [facility] [place], [address], 01/31/2021 13:10:05 01/31/20 21 01/31/2021 COMP. METAB OLIC PANEL (14) alkaline phosphatase 51 IU/L 48-121 normal Not Available [facility] ([facility]) [address] [facility] [place], [address], 01/31/2021 13:10:05 01/31/20 21 01/31/2021 COMP. METAB OLIC PANEL (14) AST (SGOT) 12 IU/L 0-40 normal Not Available [facility] ([facility]) [address] [facility], [place], [address], 01/31/2021 13:10:05 01/31/20 21 01/31/2021 COMP. METAB OLIC PANEL (14) ALT (SGPT) 10 IU/L 0-32 normal Not Available [facility] ([facility]) [address] [place], [address], 01/31/2021 13:10:05 01/31/20 21 01/31/2021 LIPID PANEL cholesterol, total 161 mg/dL 100-19 9 normal Not Available [facility] ([facility]) [address] [place], [address], 01/31/2021 13:10:06 01/31/20 21 01/31/2021 LIPID PANEL triglyceride s 54 mg/dL 0-149 normal Not Available [facility] ([facility]) [address] [place], [address], 01/31/2021 13:10:06 01/31/20 21 01/31/2021 LIPID PANEL HDL cholesterol 58 mg/dL >39 normal Not Available [facility] ([facility]) [address] [place], [address], 01/31/2021 13:10:06 01/31/20 21 01/31/2021 LIPID PANEL VLDL cholesterol zeina 11 mg/dL 5-40 normal Not Available [facility] ([facility]) [address] [place], [address], 01/31/2021 13:10:06 01/31/20 21 01/31/2021 LIPID PANEL LDL chol calc ([facility]) 92 mg/dL 0-99 normal Not Available [facility] ([facility]) [address] [place], [address], 01/31/2021 13:10:06 01/31/20 21 01/31/2021 LIPID PANEL comment: RETAIL OFFICE MANAGER normal Not Available [facility] ([facility]) [address] [facility], [place], [address], 01/31/2021 13:10:06 01/31/20 21 01/31/2021 RHEUM ATOID FACTO R (RF) rheumatoid factor (rf) <10.0 IU/mL 0.0-13 .9 normal Not Available [facility] ([facility]) [address] [facility], [place], [address], 01/31/2021 13:10:07 01/31/20 21 01/31/2021 IRENE W/REF EDA IF POSIT KEVIN IRENE direct NEGATI VE negati ve normal Not Available [facility] ([facility]) [address] [facility], [place], [address], 01/31/2021 13:10:07 01/31/20 21 01/31/2021 SEDIM ENTAT ION RATE- WESTE RGREN sedimentatio n rate-westerg ronit 5 mm/HR 0-32 normal Not Available [facility] ([facility]) [address] [facility], [place], [address], 01/31/2021 13:10:08 01/31/20 21 01/31/2021 C-DAMON CTIVE PROTE IN, QUANT C-reactive protein, quant <1 mg/L 0-10 normal Not Available [facility] ([facility]) [address] [place], [address], 01/31/2021 13:10:09 04/11/20 24 04/12/2024 LIPID PANEL cholesterol, total 153 mg/dL 100-19 9 Not Available [facility] ([facility]) [address] [place], [address], 04/12/2024 10:15:04 04/11/20 24 04/12/2024 LIPID PANEL triglyceride s 77 mg/dL 0-149 Not Available [facility] ([facility]) [address] [place], [address], 04/12/2024 10:15:04 04/11/20 24 04/12/2024 LIPID PANEL HDL cholesterol 63 mg/dL >39 Not Available [facility] ([facility]) [address] [place], [address], 04/12/2024 10:15:04 04/11/20 24 04/12/2024 LIPID PANEL VLDL cholesterol zeina 15 mg/dL 5-40 Not Available [facility] ([facility]) [address] [place], [address], 04/12/2024 10:15:04 04/11/2004/12/2024 LIPID PANEL LDL chol calc ([facility]) 75 mg/dL 0-99 Not Available [facility] ([facility]) [address] [place], [address], 04/12/2024 10:15:04 04/11/2004/12/2024 BASIC METAB OLIC PANEL (7) glucose 85 mg/dL 70-99 Not Available [facility] ([facility]) [address] [place], [address], 04/12/2024 10:15:06 04/11/20 24 04/12/2024 BASIC METAB OLIC PANEL (7) BUN 5 mg/dL 6-20 below low normal Not Available [facility] ([facility]) [address] [place], [address], 04/12/2024 10:15:06 04/11/2004/12/2024 BASIC METAB OLIC PANEL (7) creatinine 0.75 mg/dL 0.57-1 .00 Not Available [facility] ([facility]) [address] [place], [address], 04/12/2024 10:15:06 04/11/20 24 04/12/2024 BASIC METAB OLIC PANEL (7) eGFR 105 mL/mi n/1.7 3 >59 Not Available [facility] ([facility]) [address] [facility], [place], [address], 04/12/2024 10:15:06 04/11/2004/12/2024 BASIC METAB OLIC PANEL (7) BUN/creatini ne ratio 7 9-23 below low normal Not Available [facility] ([facility]) [address] [facility], [place], [address], 04/12/2024 10:15:06 04/11/2004/12/2024 BASIC METAB OLIC PANEL (7) sodium 142 mmol/ L 134-14 4 Not Available [facility] ([facility]) [address] [facility], [place], [address], 04/12/2024 10:15:06 04/11/2004/12/2024 BASIC METAB OLIC PANEL (7) potassium 4.3 mmol/ L 3.5-5. 2 Not Available [facility] ([facility]) [address] [facility], [place], [address], 04/12/2024 10:15:06 04/11/2004/12/2024 BASIC METAB OLIC PANEL (7) chloride 107 mmol/ L 96-106 above high normal Not Available [facility] ([facility]) [address] [facility], [place], [address], 04/12/2024 10:15:06 04/11/2004/12/2024 BASIC METAB OLIC PANEL (7) carbon dioxide, total 23 mmol/ L 20-29 Not Available [facility] ([facility]) [address] [facility], [place], [address], 04/12/2024 10:15:06 04/11/2004/12/2024 MICRO SCOPI C EXAMI NATIO N WBC 0-5 /hpf 0-5 Not Available [facility] ([facility]) [address] [facility], [place], [address], 04/12/2024 10:15:07 04/11/2004/12/2024 MICRO SCOPI C EXAMI NATIO N RBC 3-10 /hpf 0-2 abnormal Not Available [facility] ([facility]) [address] [facility], [place], [address], 04/12/2024 10:15:07 04/11/2004/12/2024 MICRO SCOPI C EXAMI NATIO N epithelial cells (non renal) 0-10 /hpf 0-10 Not Available [facility] ([facility]) [address] [facility], [place], [address], 04/12/2024 10:15:07 04/11/2004/12/2024 MICRO SCOPI C EXAMI NATIO N casts None seen /lpf nonese en Not Available [facility] ([facility]) [address] [facility], [place], [address], 04/12/2024 10:15:07 04/11/2004/12/2024 MICRO SCOPI C EXAMI NATIO N bacteria Few nonese en/few Not Available [facility] ([facility]) [address] [facility], [place], [address], 04/12/2024 10:15:07 04/11/2004/12/2024 URINA LYSIS , ROUTI NE specific gravity 1.015 1.005- 1.030 Not Available [facility] ([facility]) [address] [facility], [place], [address], 04/12/2024 10:15:08 04/11/2004/12/2024 URINA LYSIS , ROUTI NE pH 5.5 5.0-7. 5 Not Available [facility] ([facility]) [address] [facility], [place], [address], 04/12/2024 10:15:08 04/11/2004/12/2024 URINA LYSIS , ROUTI NE urine-color YELLOW yellow Not Available [facility] ([facility]) [address] [facility], [place], [address], 04/12/2024 10:15:08 04/11/2004/12/2024 URINA LYSIS , ROUTI NE appearance CLEAR clear Not Available [facility] ([facility]) [address] [facility], [place], [address], 04/12/2024 10:15:08 04/11/2004/12/2024 URINA LYSIS , ROUTI NE WBC esterase NEGATI VE negati ve Not Available [facility] ([facility]) [address] [facility], [place], [address], 04/12/2024 10:15:08 04/11/2004/12/2024 URINA LYSIS , ROUTI NE protein NEGATI VE negati ve/tra ce Not Available [facility] ([facility]) [address] [facility], [place], [address], 04/12/2024 10:15:08 04/11/2004/12/2024 URINA LYSIS , ROUTI NE glucose NEGATI VE negati ve Not Available [facility] ([facility]) [address] [facility], [place], [address], 04/12/2024 10:15:08 04/11/2004/12/2024 URINA LYSIS , ROUTI NE ketones NEGATI VE negati ve Not Available [facility] ([facility]) [address] [facility], [place], [address], 04/12/2024 10:15:08 04/11/2004/12/2024 URINA LYSIS , ROUTI NE occult blood 2+ negati ve abnormal Not Available [facility] ([facility]) [address] [facility], [place], [address], 04/12/2024 10:15:08 04/11/2004/12/2024 URINA LYSIS , ROUTI NE bilirubin NEGATI VE negati ve Not Available [facility] ([facility]) [address] [facility], [place], [address], 04/12/2024 10:15:08 04/11/2004/12/2024 URINA LYSIS , ROUTI NE urobilinogen ,semi-qn 0.2 mg/dL 0.2-1. 0 Not Available [facility] ([facility]) [address] [facility], [place], [address], 04/12/2024 10:15:08 04/11/2004/12/2024 URINA LYSIS , ROUTI NE nitrite, urine NEGATI VE negati ve Not Available [facility] ([facility]) [address] [facility], [place], [address], 04/12/2024 10:15:08 04/11/2004/12/2024 URINA LYSIS , ROUTI NE microscopic examination SEE BELOW: Micro scopi c was indic ated and was perfo rmed. Not Available [facility] ([facility]) [address] [facility], [place], [address], 04/12/2024 10:15:08 04/11/2004/12/2024 CBC, PLATE LET, NO DIFFE RENTI AL WBC 3.6 x10e3 /uL 3.4-10 .8 Not Available [facility] ([facility]) [address] [facility], [place], [address], 04/12/2024 10:15:10 04/11/2004/12/2024 CBC, PLATE LET, NO DIFFE RENTI AL RBC 4.02 x10e6 /uL 3.77-5 .28 Not Available [facility] ([facility]) [address] [facility], [place], [address], 04/12/2024 10:15:10 04/11/2004/12/2024 CBC, PLATE LET, NO DIFFE RENTI AL hemoglobin 12.1 g/dL 11.1-1 5.9 Not Available [facility] ([facility]) [address] [facility], [place], [address], 04/12/2024 10:15:10 04/11/2004/12/2024 CBC, PLATE LET, NO DIFFE RENTI AL hematocrit 37.9 % 34.0-4 6.6 Not Available [facility] ([facility]) [address] [facility], [place], [address], 04/12/2024 10:15:10 04/11/2004/12/2024 CBC, PLATE LET, NO DIFFE RENTI AL MCV 94 fL 79-97 Not Available [facility] ([facility]) [address] [facility], [place], [address], 04/12/2024 10:15:10 04/11/2004/12/2024 CBC, PLATE LET, NO DIFFE RENTI AL MCH 30.1 pg 26.6-3 3.0 Not Available [facility] ([facility]) [address] [facility], [place], [address], 04/12/2024 10:15:10 04/11/2004/12/2024 CBC, PLATE LET, NO DIFFE RENTI AL MCHC 31.9 g/dL 31.5-3 5.7 Not Available [facility] ([facility]) [address] [facility], [place], [address], 04/12/2024 10:15:10 04/11/2004/12/2024 CBC, PLATE LET, NO DIFFE RENTI AL RDW 12.5 % 11.7-1 5.4 Not Available [facility] ([facility]) [address] [facility], [place], [address], 04/12/2024 10:15:10 04/11/2004/12/2024 CBC, PLATE LET, NO DIFFE RENTI AL platelets 234 x10e3 /uL 150-45 0 Not Available [facility] ([facility]) [address] [facility], [place], [address], 04/12/2024 10:15:10 04/11/2004/12/2024 IRENE W/REF EDA IF POSIT KEVIN IRENE direct NEGATI VE negati ve Not Available [facility] ([facility]) [address] [facility], [place], [address], 04/12/2024 15:11:38 04/11/2004/12/2024 CREAT INE KINAS E,TOT AL creatine kinase,total 145 U/L 32-182 Not Available [facility] ([facility]) [address] [facility], [place], [address], 04/12/2024 15:11:40 04/11/2004/12/2024 HEMOG LOBIN A1C hemoglobin A1C 5.3 % 4.8-5. 6 Predi abete s: 5.7 - 6.4 Diabe sarah: >6.4 Glyce venkata contr ol for adult s with diabe sarah: <7.0 Not Available [facility] ([facility]) [address] [facility], [place], [address], 04/12/2024 15:11:41 04/11/2004/12/2024 TSH TSH 1.480 uIU/m L 0.450- 4.500 Not Available [facility] ([facility]) [address] [facility], [place], [address], 04/12/2024 15:11:42 04/11/2004/12/2024 SEDIM ENTAT ION RATE- WESTE RGREN sedimentatio n rate-westerg ronit 2 mm/HR 0-32 Not Available [facility] ([facility]) [address] [facility], [place], [address], 04/12/2024 15:11:43 04/11/20 24 04/12/2024 RHEUM ATOID FACTO R (RF) rheumatoid factor (rf) <10.0 IU/mL <14.0 Not Available [facility] ([facility]) [address] [facility], [place], [address], 04/12/2024 15:11:45 04/11/20 24 04/12/2024 C-DAMON CTIVE PROTE IN, QUANT C-reactive protein, quant <1 mg/L 0-10 Not Available [facility] ([facility]) [address] [facility], [place], [address], 04/12/2024 15:11:46 11/11/19 19 11/05/2018 US, obste tric, 2nd trime ster No observ ation record ed. [facility] ([facility]) [address] [place], [address], 11/15/2018 19:11:37 12/04/19 19 12/03/2018 US, obste tric, 2nd trime ster No observ ation record ed. [facility] ([facility]) [address] [place], [address], 12/15/2018 17:05:21 12/04/19 19 12/03/2018 US, obste tric, 2nd trime ster No observ ation record ed. [facility] ([facility]) [address] [place], [address], 12/15/2018 13:55:27 04/10/20 21 04/10/2021 XR, hip, bilat eral No observ ation record ed. [facility] ([facility]) [address] [place], [address], 03/29/2024 11:06:13 04/10/20 21 04/10/2021 XR, knee No observ ation record ed. [facility] ([facility]) [address] [place], [address], 03/29/2024 11:05:55 04/10/20 21 04/10/2021 XR, cervi zeina spine No observ ation record ed. [facility] ([facility]) [address] [facility], [place], [address], 03/29/2024 10:59:53 Result Notes None recorded. Problems Name Problem SNOMED Code Status Onset Date Resolution Date Notes Provider Name and Address Organization Details Recorded Time Infectio n by Trichomo vazquez [id number] Completed [place]io [place] null, [place] - [facility] 9 14:12:53 labor with delivery 64185641925 054920 Completed 09/20/2018 [place] [facility] 9 18:02:25 labor with delivery 54364010270 021360 [place] [facility] 9 14:12:53 Insomnia 590425450 Completed 09/20/2018 [place]iz [place] - [facility] 9 16:10:05 Disorder of upper limb 937253808 [place] [facility] 6 15:17:12 Infectio n by Trichomo vazquez 24158280 [place] [facility] 9 14:12:53 labor with delivery 11565180315 255776 Completed 201110/27/2011 [place] [facility] 9 14:12:53 Anovulat ion 33778022 Completed 201809/20/2018 Flo [place]iz [place] - [facility] 9 16:10:00 Past pregnanc y history of prematur e delivery 323401818 Completed 201809/20/2018 Flo [place]iz [place] [facility] 9 18:02:14 Pregnanc y 47395934 Completed 201809/20/2018 [place]iz [place] [facility] 9 16:09:57 B12 deficien cy monitori ng Active 2018 Flo VelazquezRobert null [place] - [facility] 9 18:01:24 Past pregnanc y history of prematur e delivery 328978081 Completed 2018 Rocio [place]iz [place] - [facility] 9 14:12:53 Past pregnanc y history of prematur e delivery 403670822 Active 2018 [place] [facility] 9 14:12:53 Hypereme sis gravidar 50386996 Completed 2018 [place] [facility] 9 14:12:53 Hypereme sis gravidar 69877729 Active 2018 [place] [facility] 9 14:12:53 Chronic idiopath ic constipa tion 43407175 Active 2018 [place] [facility] 9 14:12:53 Chronic idiopath ic constipa tion 34454771 Completed 2018 [place] [facility] 9 14:12:53 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 [place]io [place]iz [place] - [facility] 9 14:12:53 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 53617294422 9102 Completed 2018 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 [place]io [place]tiz [place] - [facility] 9 14:12:53 Degenera tion of cervical interver tebral disc 67862229 Active 2020 Aman Romero MD Attn: Suresh g,[address] [facility], [place], [address], [place] [facility] 1 16:39:47 Musculos keletal pain 181932389 Active 2023 Aman Romero MD Attn: Suresh g,[address] [facility], [place], [address], [place] [facility] 4 11:17:08 Influenz a vaccinat ion declined 531183177 Active 2023 Amna Romero MD Attn: Suresh montoya,[address] [place], [place], [address] [place] [address] 2, [place] - [facility] 4 13:08:57 SARS-CoV -2 vaccinat ion declined 9332727052 Active 2023 Aman Romero MD Attn: Suresh montoya,[address] [facility], [place], [place], [address] [place] [address] 2, [facility] - [facility] 4 13:08:58 Problem Notes None recorded. Procedures Surgical History Date Name Laterality Status Provider Name and Address Organization Details Recorded Time 4 Date of Last Pap Smear completed Aman Romero MD Attn: Accounting,[address] [place], [place], [address] [place] [address], [facility] - [facility] 03/29/2024 11:03:23 9 delivery completed Aman Romero MD Attn: Accounting,[address] [place], [place], [address] [place] [address], [place] - [facility] 01/11/2021 14:41:45 6 IUD Removal completed Flo Jones CT - [facility] 6 15:39:35 Imaging Results None recorded. Procedure Notes None recorded. Medical Equipment None Reported. Allergies Allergen ID Allergen Name Allergen Category Reaction Reaction Severity Criticality Documentation Date Start Date Code Code System Note Provider Name and Address Organization Details Recorded Time 91646 Product containin g penicilli n (product) medicatio n angioedem a severe Not available 01/09/20152014 45990 8001 SNOMED Aman Romero MD Attn: Suresh montoya,[address] [facility], [place], [place], [address] [place] [address], [place] - [facility] 7 12:17:08 Medications Name Sig Start Date Stop Date Status Note LastModified by Organization Details LastModified Time multivitami n tablet Take 1 tablet every day by oral route. 09/20 completed Not Available Not Available Not Available Mirena 21 mcg/24 hr (up to 8 years) 52 mg intrauterin e device Take by intrauter ine route. 02/26 completed Not Available Not Available Not Available metformin 500 mg tablet Take 1 tablet twice a day by oral route. 07/07 completed Not Available Not Available Not Available bupropion HCl SR 150 mg tablet,12 hr sustained-r elease Take 1 tablet twice a day by oral route. 09/01 completed Not Available Not Available Not Available fluconazole 150 mg tablet TAKE 1 TABLET BY MOUTH ONCE 01/11 completed Not Available Not Available Not Available hydrocodone 5 mg-acetamin ophen 325 mg tablet TAKE 1 TO 2 TABLETS BY MOUTH EVERY 4 HOURS NEEDED FOR PAIN. MAX 8 TABS/DAY 05/23 completed Not Available Not Available Not Available naltrexone 50 mg tablet Take 1 tablet every day by oral route. 09/01 completed Not Available Not Available Not Available Anucort-HC 25 mg suppository INSERT 1 SUPPOSITO RY RECTALLY TWICE DAILY FOR 7 DAYS 01/09 completed Not Available Not Available Not Available clindamycin HCl 150 mg capsule 02/26 completed Not Available Not Available Not Available Roseann Low Dose Aspirin 81 mg tablet,crys yed release Take 1 tablet every day by oral route. 05/23 completed Not Available Not Available Not Available metronidazo le 500 mg tablet Take 1 tablet twice a day by oral route for 1 day. 05/23 completed Not Available Not Available Not Available acetaminoph en 300 mg-codeine 30 mg tablet 02/26 completed Not Available Not Available Not Available ciprofloxac in 500 mg tablet Take 1 tablet every 12 hours by oral route. 01/09 completed Not Available Not Available Not Available sulfamethox azole 800 mg-trimetho prim 160 mg tablet Take 1 tablet every 12 hours by oral route. 07/07 completed Not Available Not Available Not Available tramadol 50 mg tablet 02/26 completed Not Available Not Available Not Available Vitamin tablet Take 1 tablet every day by oral route as directed for 90 days. 05/23 completed Not Available Not Available Not Available Zofran 4 mg tablet Take 1 tablet 3 times a day by oral route as needed. 05/23 completed Not Available Not Available Not Available famotidine 20 mg tablet Take 1 tablet twice a day by oral route. 05/23 completed Not Available Not Available Not Available cyanocobala min (vit B-12) 500 mcg tablet Take 1 tablet by oral route as directed for 30 days. 07/07 completed Not Available Not Available Not Available hydrocodone 7.5 mg-acetamin ophen 325 mg tablet 02/26 completed Not Available Not Available Not Available cephalexin 500 mg capsule TAKE 1 CAPSULE BY MOUTH 4 TIMES A DAY 05/18 completed Not Available Not Available Not Available cyanocobala min (vit B-12) 1,000 mcg/mL injection solution Inject 1 mL every month by intramusc ular route. 05/23 completed Not Available Not Available Not Available tobramycin 0.3 % eye drops 02/26 completed Not Available Not Available Not Available progesteron e micronized 200 mg capsule TAKE 1 CAPSULE BY MOUTH TWICE DAILY 05/23 completed Not Available Not Available Not Available butalbital- aspirin-caf feine 50 mg-325 mg-40 mg capsule 05/05 completed Not Available Not Available Not Available aspirin 81 mg chewable tablet Chew 1 tablet every day by oral route. 10/01 completed Not Available Not Available Not Available folic acid 1 mg tablet Take 4 tablets every day by oral route. 05/23 completed Not Available Not Available Not Available ibuprofen 600 mg tablet TAKE 1 TABLET BY MOUTH 4 TIMES A DAY NEEDED FOR PAIN. TAKE WITH FOOD 05/18 completed Not Available Not Available Not Available polyethylen e glycol 3350 17 gram/dose oral powder Take 17 g every day by oral route for 30 days. 01/09 completed Not Available Not Available Not Available letrozole 2.5 mg tablet Take 1 tablet every day by oral route. 09/20 completed Not Available Not Available Not Available loratadine 10 mg tablet 01/11 completed Not Available Not Available Not Available metoclopram umberto 10 mg tablet Take 1 tablet 4 times a day by oral route. 10/01 completed Not Available Not Available Not Available Vitamin B-12 1,000 mcg tablet Take 1 tablet every day by oral route for 90 days. 07/07 completed Not Available Not Available Not Available cyclobenzap rine 5 mg tablet TAKE 1 TABLET BY MOUTH THREE TIMES DAILY FOR 14 DAYS DIRECTED FOR STIFFNESS active Not Available Not Available No t Available melatonin 1 mg tablet Take 1 tablet every day by oral route. 10/01 completed Not Available Not Available Not Available nitrofurant oin monohydrate /macrocryst als 100 mg capsule 05/05 completed Not Available Not Available Not Available lactulose 10 gram/15 mL oral solution Take 15 mL every day by oral route. 05/23 completed Not Available Not Available Not Available Aleve 05/05 completed Not Available Not Available Not Available Tylenol 05/05 completed Not Available Not Available Not Available Oysco 500/D 500 mg-5 mcg (200 unit) tablet 09/20 completed Not Available Not Available Not Available Calcium with Vitamin D3 600 mg (carbonate) -10 mcg (400 unit) capsule Take 1 capsule twice a day by oral route. 05/23 completed Not Available Not Available Not Available Calcium with Vitamin D 600 mg-10 mcg (400 unit) tablet Take 1 tablet twice a day by oral route. 07/07 completed Not Available Not Available Not Available Vinate One 60 mg iron-1 mg tablet 09/20 completed Not Available Not Available Not Available Plan B One-Step 1.5 mg tablet Take 1 tablet by oral route. 05/18 completed Not Available Not Available Not Available PNV-Select 27 mg-1 mg tablet Take 1 tablet every day by oral route. 05/23 completed Not Available Not Available Not Available Letitia (28) 90 mcg-20 mcg tablet TAKE 1 TABLET BY MOUTH ONCE DAILY 02/26 completed Not Available Not Available Not Available melatonin 10 mg tablet Take 10 mg every day by oral route at bedtime. 05/23 completed Not Available Not Available Not Available calcium 600 mg (as carbonate)- vitamin D3 20 mcg (800 unit) tablet Take 1 tablet twice a day by oral route. 09/20 completed Not Available Not Available Not Available Linzess 145 mcg capsule TAKE 1 CAPSULE BY MOUTH EVERY DAY 05/23 completed Not Available Not Available Not Available Xulane 150 mcg-35 mcg/24 hr transdermal patch Appy 1 patch to skin weekly 02/26 completed Not Available Not Available Not Available Narcan 4 mg/actuatio n nasal spray ADMINISTE R 1 SPRAY INTO AFFECTED NOSTRIL(S ) NEEDED FOR OPIOD REVERSAL 01/11 completed Not Available Not Available Not Available [place] (PF) 275 mg/1.1 mL subcutaneou s auto-inject or INJECT THE CONTENTS OF 1 PEN UNDER THE SKIN ONE PER WEEK 05/23 completed Not Available Not Available Not Available Vitals Date Recorded Body weight Provider Name an d Address Organization Details Last Updated DateTime 11/15/[address] [facility] 019 19:18:00 Date Recorded Body height Body mass index (BMI) Systolic And Diastolic Provider Name and Address Organization Details Last Updated DateTime 11/15/2018 167.64 cm 30.2 kg/m2 112/72 mm[Hg] Grace Hastings MA [facility] 11/15/2018 17:00:55 Date Recorded Body weight Provider Name an d Address Organization Details Last Updated DateTime 12/13/[address] [facility] 12/14/19 19 17:09:22 Date Recorded Body height Body mass index (BMI) Systolic And Diastolic Provider Name and Address Organization Details Last Updated DateTime 12/13/2018 167.64 cm 30.7 kg/m2 120/68 mm[Hg] Mehnaz Marcus MA [facility] 12/13/2018 16:20:08 Date Recorded Body height Heart rate Oxygen saturation Oxygen saturation in Arterial blood by Pulse oximetry Respiratory rate Body temperature Systolic And Diastolic Provider Name and Address Organization Details Last Updated DateTime 1 167.64 cm 72 /min 99 % 99 % 16 /min 98.3 [degF] 114/76 mm[Hg] Viviane Landis MA [facility] 1 14:29:31 Date Recorded Body height Body mass index (BMI) Body weight Heart rate Oxygen saturation Oxygen saturation in Arterial blood by Pulse oximetry Systolic And Diastolic Provider Name and Address Organization Details Last Updated DateTime 4 167.64 cm 27.4 kg/m2 96873.7 g 89 /min 96 % 96 % 132/90 mm[Hg] Lashawn Marie MA [facility] 4 10:39:45 Social History Question Answer Notes LastModified by Organizat ion Details LastModified Time Tobacco Smoking Status Never Smoker Irma Stallworth MA null, [facility] 11/19/2015 15:00:22 Do You Have An Advance Directive? No Information not available 11/19/2015 If You Are , What Was Your Level Of Alcohol Consumption Prior To ? Moderate Information not available 09/20/2018 Is Anesthesia Consult Planned? Yes [email or web address] Information not available 10/01/2018 Plan No Information no t available 10/01/2018 Are You Blind Or Do You Have Difficulty Seeing? No Information not available 01/11/2021 Is Blood Transfusion Acceptable In An Emergency? Yes Information not available 11/19/2015 What Is Your Level Of Caffeine Consumption? Moderate Information not available 11/19/2015 Live With Cats/exposure To Cat Litter No Information not available 09/20/2018 How Much Tobacco Do You Chew? None Information not available 11/19/2015 In The 14 Days Before Symptom Onset, Have You Had Close Contact With A Laboratory-confi rmed COVID-19 While That Case Was Ill? No Information not available 01/11/2021 In The 14 Days Before Symptom Onset, Have You Had Close Contact With A Person Who Is Under Investigation For COVID-19 While That Person Was Ill? No Information not available 01/11/2021 Have You Been To An Area Known To Be High Risk For COVID-19? Yes Information not available 01/11/2021 Are You Deaf Or Do You Have Serious Difficulty Hearing? No Information not available 01/11/2021 What Type Of Diet Are You Following? REGULAR Information not available 11/19/2015 Which Illicit Or Recreational Drugs Have You Used? Marijuana [email or web address] Information not available 12/13/2018 Education 2 Year College Information not available 11/19/2015 Have There Been Any Changes To Your Family Or Social Situation? Yes Pt States Son Doesnt Live C Her, Pt States, Son Was Being Bullies, Cb-rm Information not available 09/20/2018 Frequent Air Travel No Information not available 09/20/2018 Illicit Drugs Pre- Marijuana Information not available 09/20/2018 Live Alone Or With Others? With Others And Kids [email or web address] Information not available 10/01/2018 Marital Status Informatio n not available 09/20/2018 What Was The Date Of Your Most Recent Tobacco Screening? 03/29/2024 [email or web address] Information not available 03/29/2024 How Many Children Do You Have? 2 Information not available 11/19/2015 Are There Any Occupational Health Risks Where You Work? None Information not available 09/20/2018 Performs Monthly Self-breast Exam? No Information not available 11/19/2015 Do You Use Protection During Sex? No Information not available 11/19/2015 What Is Your Relationship Status? Information not available 11/19/2015 Do You Use Your Seat Belt Or Car Seat Routinely? Yes Information not available 01/11/2021 Seat Belts Used Routinely Yes Information not available 11/19/2015 Are You Sexually Active? Yes Information not available 11/19/2015 Do You Have Smoke And Carbon Monoxide Detectors In Your Home? Yes Information not available 09/20/2018 Are You Passively Exposed To Smoke? Yes Information not available 09/20/2018 How Much Tobacco Do You Smoke? No Information not available 02/26/2017 Smoking Pre- No Information not available 09/20/2018 General Stress Level High Information not available 09/20/2018 Do You Use Sunscreen Routinely? No Information not available 11/19/2015 Supplements Prenatals Information n ot available 09/20/2018 Has Tobacco Cessation Counseling Been Provided? No royal Information not available 09/20/2018 On What Date Was Tobacco Cessation Counseling Provided? 03/29/2024 Royal Answered No To The Tobacco Cessation Counseling Provided Question On 09/20/2018. Information not available 03/29/2024 How Many Years Have You Smoked Tobacco? 0 Information not available 02/26/2017 Sex: Unknown Functional Status Question Answer Note LastModified by Organizat ion Details LastModified Time Do you use any illicit or recreational drugs? Yes Marijuana Information not available 03/29/2024 What is your level of alcohol consumption? None [email or web address] Information not available 12/13/2018 Are you currently employed? No Information not available 01/11/2021 Are you able to care for yourself? 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 Occasional Information not available 11/19/2015 Mental Status None recorded. Family History Relationship Description Onset Age of this Age Resolved Age Notes LastModified by Organization Details LastModified Time Maternal Grandmother Hypertensive disorder asserman Not available 11/18 15:17:50 Maternal Grandmother History of cerebrovascu lar accident asserman Not available 15:17:50 Mother Migraine High blood pressu re cherry Not available 11/19/2015 15:17:50 Medical History Condition Response Coronary Artery Disease N Other N High Blood Pressure N Atrial Fibrillation N Breast Cancer N Lung Disease N Depression N COPD N Blood Clots N Breast Problem N Anesthesia Complications N Headaches/Migraines Y Anxiety Disorder N Muscle, Joint, or Bone Problems Y Polyps N Infertility N Acid Reflux (GERD) N Cancer N Stroke N Endometriosis N High Cholesterol N Liver Disease N Headaches Y Thyroid Problems N Kidney or Bladder Problems N GI Problems N Acne N Skin Problems N Eating Disorder N Anemia N Heart Attack (MD) N Ovarian Cancer N Diabetes N Blood Transfusions N Seizures/Epilepsy N Abuse/Domestic Violence N Asthma N Allergies N Hepatitis N Heart Disease N Pre-Eclampsia N Osteoporosis N Heart Failure N Gynecological History Statement/Question Response Abnormal Pap N Date of LMP 03/05/2024 On BCP's at Conception? N STIs/STDs Y HPV Vaccine N Age at Menarche 14 Current Control Method IUD Age at First Child 20 Sexually Active? Y Menses Monthly N Date of Last Pap Smear 07/16/2023 Sexual Problems? N LMP Definite Desired Control Method Unknown Obstetrics History GPAL:G 3 P 1 2 0 3 Type Value Multiple Births 0 Full Term 1 Induced 0 Spontaneous 0 Premature 2 Living 3 Ectopics 0 Total 3 Immunizations Vaccine Type Date Status Note Provider Ricky tang and Address Organization Details Recorded Time Tdap 05/05/2017 completed Not Available [employer] 07/02/2019 02:47:14 Past Encounters Encounter ID Performer Location Encounter Start Date Encounter Closed Date Diagnosis/Indication Diagnosis SNOMED-CT Code Diagnosis ICD10 Code Diagnosis Note [id number] MD Dulce Pelayo (AUTOMATION SALES MANAGER) [address] [place] [address] 35512-071 0 10/30/2014 15:39:08 10/30/2014 16:39:28 Routine procedure 148613978 Hemorrhoids 03416281 [id number] MD Dulce Pelayo (AUTOMATION SALES MANAGER) [address] [place] [address] 95140-818 0 11/28/2014 10:53:08 11/28/2014 11:30:54 Urinary tract infectious disease 11322935 New or worse sx should be reevaluate d urgently Constipation 19238251 Di etary remedy reviewed at length. [id number] MD Dulce Rosales (Adult Med) [address] [place] [address] 82718-083 0 01/09/2015 13:50:29 01/09/2015 14:46:35 General examination of patient [id number] Insomnia 914347540 Sleep hygiene OTC agents may be appropriat e Disorder o f upper limb 758130969 [id number] MD Dulce Carlin (AUTOMATION SALES MANAGER) [address] [place] [address] 02604-971 0 11/19/2015 14:15:11 11/19/2015 15:43:02 Family planning surveillance 557629693 Z30.09 Uses IUD (intrauterine device) contraception 632226312 Z97.5 [id number] MD Dulce Rosales (Adult Med) [address] [place] [address] 94859-705 0 02/26/2017 11:43:28 02/26/2017 12:51:03 Headache 82639076 R51 Neck pain 90133363 M54.2 Adult heal th examination 318251228 Z00.00 Cervical radiculopathy 40090180 M54.12 Immunization refused 275 959221 Z28.20 [id number] MD Dulce Rosales (Adult Med) [address] [place] [address] 95557-337 0 05/05/2017 15:21:55 05/05/2017 16:57:13 History of anemia vitamin B12 deficient 042073726 Z86.2 Weight gain 2680813 R63. 5 An appropriat e diet and an exercise regimen were discussed. Anemia 945708554 D64.9 Administra tion of diphtheria, pertussis, and tetanus vaccine 989210242 Z23 [id number] MD Dulce Carlin (AUTOMATION SALES MANAGER) [address] [place] [address] 28573-110 0 07/30/2017 15:13:38 08/03/2017 13:07:30 Gynecologic examination 34004200 Z01.419 Exposure t o sexually transmissible disorder 340475232 Z20.2 Family bernabe nning surveillance 378833941 Z30.09 Body mass index 25-29 - overweight 532339498 Z68.29 [id number] MD Dulce Rosales (Adult Med) [address] [place] [address] 31318-966 0 09/01/2017 17:06:01 09/01/2017 17:48:50 Headache 57177441 R51 Severe headaches History of anemia 674624 002 Z86.2 Family his tory of aneurysm of artery 081924241 Z82.49 Strong FHX of cerebral aneurysm with left sided headaches, her plain CT scan was negative in 2014 Irregular periods 383421 07 N92.6 HCG negUA + blood Adult heal th examination 810467462 Z00.00 [id number] MD Dulce Carlin (AUTOMATION SALES MANAGER) [address] [place] [address] 44985-911 0 03/18/2018 11:02:30 03/18/2018 12:11:40 Exposure to sexually transmissible disorder 911576085 Z20.2 Polycystic ovaries 24265 008 E28.2 Gynecologi c examination 52744044 Z01.419 Z11.51 [id number] MD Dulce Carlin (AUTOMATION SALES MANAGER) [address] [place] [address] 93652-392 0 07/07/2018 14:51:04 07/07/2018 16:57:33 Amenorrhea 69217721 N91.2 test negative 07/07 Anovulation 61748866 N97 .0 Hx of prior IUD - will check patency of fallopian tubes. Will try Letrozole instead of metformin. Family bernabe nning surveillance 669938577 Z30.09 Will try Letrozole instead of metformin. Past pregn andria history of premature delivery 523703787 Z87.51 [id number] MD Dulce Carlin (AUTOMATION SALES MANAGER) [address] [place] [address] 80874-943 0 09/20/2018 14:49:34 09/21/2018 11:54:34 Routine care 105626588 Z34.90 Chronic id iopathic constipation 52774513 K59.04 Hyperemesi s gravidarum 08798756 O21.0 Past pregn andria history of premature delivery 883818436 Z87.51 B12 09/20/18 Infection by Trichomonas 66558152 A59.9 [id number] [facility]OM[facility]ES MANA[facility] [address] [place] [address] 40421-644 0 10/01/2018 10:58:48 10/04/2018 11:36:33 Routine care 320414717 Z34.90 [id number] [facility] (AUTOMATION SALES MANAGER) [address] [place] [address] 79939-549 0 10/18/2018 16:18:47 10/19/2018 14:13:02 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 b12 09/20/18, 10/18/18 Routine an tenatal care 354408602 Z34.90 Chronic id iopathic constipation 47270504 K59.04 Past pregn andria history of premature delivery 477011288 Z87.51 Isidra shots weekly until 36w Infection by Trichomonas 57709140 A59.9 [id number] MD Dulce Carlin (AUTOMATION SALES MANAGER) [address] [place] [address] 21318-964 0 11/15/2018 16:26:35 11/15/2018 18:12:43 Heterozygous methylenetetrahydrofo late reductase mutation 7613646737 70735 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 b12 09/20/18, 10/18/18 Routine an tenatal care 715168628 Z34.90 Hyperemesi s gravidarum 36450531 O21.0 Chronic id iopathic constipation 71061268 K59.04 Past pregn andria history of premature delivery 864208624 Z87.51 [place] shots weekly until 36w Infection by Trichomonas 41279322 A59.9 [id number] MD Dulce Carlin [facility] (AUTOMATION SALES MANAGER) [address] [place] [address] 21196-519 0 12/13/2018 15:35:13 12/14/2018 11:48:03 Routine care 200366971 Z34.90 Heterozygo us methylenetetrahydrofo late reductase mutation 8050887089 17700 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 Pt will return 12/17 for B12 shot in office. Past pregn andria history of premature delivery 998429019 Z87.51 [place] shots weekly until 36w Hyperemesi s gravidarum 75063276 O21.0 Pt states reglan and zofran make nausea worse. Gastroesop hageal reflux disease 204865776 K21.9 [id number] Antonina Shahid [facility] [address] [facility] [address] [place] [address] 85935-968 1 05/18/2020 15:19:39 05/21/2020 10:57:51 Venereal disease screening 973333823 Z11.3 1. STD testing done per pt request 2. Educated pt on STD prevention , Condom use 3. Pt verbalized understand ing 4. Will follow up pending lab results, as needed or at next annual Vaginal discharge 190008 006 N89.8 Meds sent to pharmacy. Counseled on bv/yeast prevention and treatment. Will call office back if treatment does not help with symptoms. Pt verbalized understand ing. [id number] MD Dulce Rosales [facility] (Adult Med) [address] [place] [address] 01/11/2021 14:14:27 01/14/2021 08:44:26 General examination of patient 733720544 Z00.01 Immunization advised 310 163618 Z71.9 Chronic hoarseness 03518 76128 105 R49.0 Degenerati on of cervical intervertebral disc 86542204 M50.30 Musculoskeletal pain 279 008741 M79.10 [id number] MD Dulce Rosales (Adult Med) [address] [place] [address] 03/29/2024 09:37:55 04/04/2024 13:02:26 General examination of patient 404275212 Z00.01 Musculoskeletal pain 279 136936 M79.10 Chronic hoarseness 30656 42295 105 R49.0 Body mass index 25-29 - overweight 622381921 Z68.27 Multiple stiff joints 20 2848655 M25.60 Influenza vaccination declined 988929446 Z28.21 SARS-CoV-2 vaccination declined 6226785584 Z28.21 Health Concerns Section Related Observation LastModified by Organization Detai ls LastModified Time None Recorded Concern Status LastModified by Organization Details LastModified Time None Recorded Advance Directives Directive N: Payers Insurance Date Sequence Insurance Name Policy Number Policy Byrne Covered Member ID Byrne Member ID Guarantor Name 03/30/2024 2 [facility] ON OR AFTER 12/13/20 (MEDICAID REPLACEMENT - HMO) Thomas Grimes [id number] Thomas Grimes 01/10/2021 SLIDING FEE SCHEDULE - DISCOUNT Thomas Grimes 08/12/2018 1 *SELF PAY* Joaquín Grimes 03/30/2024 2 [facility] PRIOR TO 12/13/2020 (MEDICAID REPLACEMENT - HMO) Thomas Grimes [id number] Thomas Grimes 05/09/2024 2 [facility] (O) [id number] Hitesh Grimes [id number] Thomas Grimes 03/30/2024 1 [facility] PRIOR TO 2020 (MEDICAID REPLACEMENT - HMO) Thomas Grimes [id number] Thomas Grimes 03/30/2024 [place] [facility] PUBLIC AID Tyshae Graves [id number] Thomas Grimes 03/30/2024 2 [place] Thomas Grimes [id number] Thomas Grimes 03/30/2024 2 [place] [facility] PUBLIC AID Thomas Grimes [id number] Thomas Grimes 11/01/2024 1 [place] [facility] Thomas Grimes [id number] Thomas Grimes 03/18/2018 1 [facility] (O) [id number] Hitesh Grimes [id number] Thomas Grimes Notes Date Note Type Note Provider Name and Address Organization Details Recorded Time 11/15/2018 text/html OB ProblemReport ed bypatient.Associated Symptoms:no abdominal pain; no cramping; no contractions; normal movement; no bleeding; no ROM; no vaginal discharge; no vaginal/vulvar itching or irritation; no dysuria; no frequency; no urgency; no hematuria; no fever; no nausea; no emesis; no constipation; no diarrhea/loose stool; no edema; no visual changes; no headache; no dizziness 32 y/o AAF with a history of MTHFR, CIC, premature delivery, trichomonas here for YENNY at 15.6w. No complaints except N/V Flo VelazquezRobertwilliam ortiz [facility] 11/15/2018 19:19:52 12/13/2018 text/html OB ProblemReport ed bypatient.Associated Symptoms:no abdominal pain; no cramping; no contractions; normal movement; no bleeding; no ROM; no vaginal discharge; no vaginal/vulvar itching or irritation; no dysuria; no frequency; no urgency; no hematuria; no fever; no nausea; no emesis; no constipation; no diarrhea/loose stool; no edema; no visual changes; no headache; no dizziness 32 y/o AAF with a history of MTHFR, CIC, premature delivery, trichomonas here for YENNY at 19.6w. No complaints except continued nausea and GERD Flo Jones diana [facility] 12/13/2018 18:34:10 05/18/2020 text/html OB ProblemReport ed bypatient.Location:[facility] Onset/Timing:symptoms present for >1 week Duration:intermittent Alleviating Factors:none Aggravating Factors:none Associated Symptoms:no abdominal pain; no cramping; no bleeding; no vaginal discharge; no dysuria; no frequency; no urgency; no hematuria; no fever; no nausea; no emesis; no constipation; no diarrhea/loose stool; no edema; no visual changes; no headache; no dizziness;vaginal/vul oriana itching or irritation phone visit for std testing. pt states her cheated and now she has a vaginal odor. YONI Flores Attn: [address] [place], [address], [facility] 05/18/2020 15:23:52 01/11/2021 text/html Musculoskeletal PainReported bypatient.Location:pa in is not radiating; bilateral shoulder; bilateral hip; bilateral knee Severity:worsening Duration:present for 1-6 months Timing:intermittent Alleviating factors:relieved by changing position Aggravating factors:movement/posi tioning Associated Symptoms:no fever; no weak limbs; no tingling; no numbness of the legs/feet; no incontinence ADL (Activities of Daily Living)improve with medication Last time I was here, I had some form of arthritisI just have stiff joints by my hips, shoulders, my back and neck She was last seen on 09/01/2017, she reports stiffness in her joints and cracking sound in her knees. The stiffness is worse in the morning and late in the day. Aman Romero MD Attn: [address] [place], [address], [facility] 01/11/2021 16:41:08 03/29/2024 text/html Musculoskeletal PainReported bypatient.Location:pa in is not radiating; bilateral neck; lumbar spine; bilateral hip Quality:sharp Severity:worsening Duration:present for >12 months Timing:constant Context:prior back problems Alleviating factors:relieved by changing position Aggravating factors:movement/posi tioning Associated Symptoms:no fever; no weak limbs; no tingling; no numbness of the legs/feet; no incontinence My body has become very stiff Ms Grimes was last seen on 01/11/2021, she reports persistent stiffness and pain in her neck, lower back and hips. Her symptoms improve as the day progresses with no rash, fever or family history of autoimmune disorders. Aman Romero MD Attn: [address]ing[address] , [place], [address], [place] [facility] 03/29/2024 13:09:31 OBGyn Episode Ob Episode Information Episode Created Date Number of Fetuses Patient Bloodtype Patient rh Status Prepregnancy Weight lbs Domestic Partner Domestic Partner Phone Father Name Medical Office Scheduler Status 09/21/19 19 1 A Positive 172 CLOSED Fetus Data First Name Last Name Admitted to NICU Weight (g) Sex Living Outcome Pediatric Complications Fetus ID Race Codes Race Delivery Type Linda Yan s true [phone] F Prematur e In NICU on vent [id number] Afric an Ameri can Primary Problems Problem Notes Yes to epidural. Pediatricia n Dr. Kc. Breast feeding. If boy, yes to circ. PPBC undecided. Possibly tubal. having a baby girl Problem Name Start Date End Date Resolution Snomed Code Note Hyperemesis gravidarum 09/21/19 83498742 Chronic idiopathic constipation 09/21/19 59916033 labor with delivery 10/27/19 12 2011 DELIVERY [id number] Past history of premature delivery 09/21/19 211467573 Heterozygous methylenetetrahydrofolate reductase mutation 09/26/19 [id number] heterozygous for the MTHFR C677T variant Infection by Trichomonas 91889 008 Uche Calculation Initial Uche Date Initial Exam Date Initial Exam Provider Initial Ultrasound Date Last Menstrual Period Date Ultra Sound Weeks Gestation 05/03/2019 09/20/2018 royal 09/29/2018 07/27/2018 9 Eighteen To Twenty Week Uche Update Ultra Sound Date Fundal Height At Umbil Quickening Date Ultra Sound Latest Weeks Gestation Final Uche Confirmed By Final Uche Confirmed Date Final Uche Date Ultra Sound Latest Days Gestation 09/30/19 19 9 royal 10/18/201805/03/ 019 1 Pre- Flowsheet Flowsheet Date 09/20/2018 Gomes Score Blood Edema Fundus Height Fundus Units Glucose Ketones Leukocytes Nitrite Labor Signs Protein Cervic Dilation Cervic Effacement Cervic Station neg none 7 wks none negative neg Type Weight in lbs Pre/Post Dialysis Refused With clothes 172.374556643655 BP Diastolic BP Location Tested BP Systolic BP Type 60 98 sitting Fetus Heart Rate Present Fetus Movement Comments 7.6 weeks. 1st trimester US ordered. 1st trimester labs obtained. B12 09/20/18. Flowsheet Date 10/01/2018 Gomes Score Blood Edema Fundus Height Fundus Units Glucose Ketones Leukocytes Nitrite Labor Signs Protein Cervic Dilation Cervic Effacement Cervic Station Type Weight in lbs Pre/Post Dialysis Refused BP Diastolic BP Location Tested BP Systolic BP Type Fetus Heart Rate Present Fetus Movement Comments Flowsheet Date 10/18/2018 Gomes Score Blood Edema Fundus Height Fundus Units Glucose Ketones Leukocytes Nitrite Labor Signs Protein Cervic Dilation Cervic Effacement Cervic Station 3+ none 11.6 wks none trace none neg Type Weight in lbs Pre/Post Dialysis Refused Weight 184.305977312896 BP Diastolic BP Location Tested BP Systolic BP Type 56 110 sitting Fetus Heart Rate Present A 153 Present Fetus Movement Comments B12 administered today. US o rder given. [place] shots weekly until 36w Flowsheet Date 11/15/2018 Gomes Score Blood Edema Fundus Height Fundus Units Glucose Ketones Leukocytes Nitrite Labor Signs Protein Cervic Dilation Cervic Effacement Cervic Station 1+ none 15 wks none negative Pressure neg Type Weight in lbs Pre/Post Dialysis Refused Weight 187.790723906721 BP Diastolic BP Location Tested BP Systolic BP Type 72 112 sitting Fetus Heart Rate Present A 166 Present Fetus Movement A No Comments MW thinks pink, MS bleeds bl ue; AFP and NIPT ordered today, US ordered Flowsheet Date 12/13/2018 Gomes Score Blood Edema Fundus Height Fundus Units Glucose Ketones Leukocytes Nitrite Labor Signs Protein Cervic Dilation Cervic Effacement Cervic Station 15 cm none Type Weight in lbs Pre/Post Dialysis Refused Weight 190.856514396421 BP Diastolic BP Location Tested BP Systolic BP Type 68 120 sitting Fetus Heart Rate Present A 154 Present Fetus Movement A No Comments Menstrual History Last Menstrual Date Menses Monthly On Bcp Conception Prior Menses Frequency Hcg Plus Date Menarche Onset Age 0207/27/2018 false false Genetic Screening And Infection History Question Response Note Patient's Age Will Be 35 Yea rs Or Older At Estimated Date of Delivery false Thalassemia (German, Turkmen, Mediterranean, Or Background): MCV < 80 false Neural Tube Defect (Meningom yelocele, Spina Bifida, Or Anencephaly) false Congenital Heart Defect false Down Syndrome false Moreno-Sachs (eg, Scientology, Cajun, Tajik-[place]) f alse Elissa Disease false Sickle Cell Disease Or Trait () false Hemophilia Or Other Blood Disorders false Muscular Dystrophy false Cystic Fibrosis false Mulberry's Chorea false Mental Retardation/Autism false If Yes, Was Person Tested For Fragile X? false Other Inherited Genetic Or Chromosomal Disorder true MTHFR Maternal Metabolic Disorder (eg, Type 1 Diabetes , PKU) false Patient Or Baby's Father Had A Child With Defects Not Listed Above false Recurrent Loss, Or A Stillbirth false Medications (including Suppl ements, Vitamins, Herbs, OTC Drugs), Illicit/Recreational Drugs, Alcohol true v itamins If Yes, Agent(s) And Strength/Dosage false Any Other Genetic History false Live With Someone With TB Or Exposed To TB false Patient Or Partner Has History Of Genital Herpes false Rash Or Viral Illness Since Last Menstrual Perio d false History Of STD, Gonorrhea, Chlamydia, HPV, Syphi lis true TV Other Infection History false History of HIV false History of Hepatitis false Prior GBS-infected child false Plans and Education First Trimester Discussed Date Discussion Item Discussion Note Discuss ed By 10/01/2018 Anticipated course of care [email or web address] 10/01/2018 Alcohol Denies [email or web address] 10/01/2018 Intimate partner violence Denies ap [email or web address] 10/01/2018 Environmental/work hazards Discussed at [facility]. [email or web address] 10/01/2018 Screening for aneuploidy apa [email or web address] 10/01/2018 Nutrition counseling ; special diet; dietary precautions (mercury, listeriosis) Discussed at [facility]. [email or web address] 10/01/2018 Childbirth classes/hospital facilities Di scussed at [facility]. [email or web address] 10/01/2018 HIV and other routine tests [email or web address] 10/01/2018 Risk factors identif ied by history [email or web address] 10/01/2018 Weight gain counseling [email or web address] [email or web address] 10/01/2018 Exercise Discussed at [facility]. [email or web address] 10/01/2018 Teratogens 10/01/2018 Use of any medicatio ns (including supplements, vitamins, herbs, or OTC drugs) PNV [email or web address] 10/01/2018 . 10/01/2018 Sexual activity 10/01/2018 Tobacco/smoking cess ation counseling (ask, advise, assess, assist, and arrange) Denies [email or web address] 10/01/2018 Illicit/recreational drugs Denies a jose r 10/01/2018 Dental care Discussed at [facility]. 10/01/2018 Travel Discussed at [facility]. [email or web address] 10/01/2018 Seat belt use Discussed at [facility]. [email or web address] 10/01/2018 Indications for ultrasonography [email or web address] 10/01/2018 Avoidance of saunas or hot tubs Discussed at [facility]. 10/01/2018 Toxoplasmosis precau tions (cats/raw meat) None in home [id number] Second Trimester Discussed Date Discussion Item Discussion Note Discuss ed By Third Trimester Discussed Date Discussion Item Discussion Note Discuss ed By Delivery Information Delivery Date Delivery Type Labor Anesthesia Weeks Gestation Incision Type Labor Labor Length Hrs Delivered By Post Complications Tubal Sterilization Discharge Date Comments 9 Sponta neous Regional-Ep idural 23.4 Low Transvers e true None false 01/11/2019 Discharge Information Feeding Method Contraceptive Method Maternal HG B and HCT Levels Ob Episode Information Episode Created Date Number of Fetuses Patient Bloodtype Patient rh Status Prepregnancy Weight lbs Domestic Partner Domestic Partner Phone Father Name Medical Office Scheduler Status 11/19/19 16 1 CLOSED Fetus Data First Name Last Name Admitted to NICU Weight (g) Sex Living Outcome Pediatric Complications Fetus ID Race Codes Race Delivery Type 1927.76 6 F Prematur e [id number] Standard Vaginal Delivery Uche Calculation Initial Uche Date Initial Exam Date Initial Exam Provider Initial Ultrasound Date Last Menstrual Period Date Ultra Sound Weeks Gestation 0 Eighteen To Twenty Week Uche Update Ultra Sound Date Fundal Height At Umbil Quickening Date Ultra Sound Latest Weeks Gestation Final Uche Confirmed By Final Uche Confirmed Date Final Uche Date Ultra Sound Latest Days Gestation 0 0 Menstrual History Last Menstrual Date Menses Monthly On Bcp Conception Prior Menses Frequency Hcg Plus Date Menarche Onset Age Delivery Information Delivery Date Delivery Type Labor Anesthesia Weeks Gestation Incision Type Labor Labor Length Hrs Delivered By Post Complications Tubal Sterilization Discharge Date Comments 2 Regional-Ep idural 33 true 24 Karla Discharge Information Feeding Method Contraceptive Method Maternal HG B and HCT Levels Ob Episode Information Episode Created Date Number of Fetuses Patient Bloodtype Patient rh Status Prepregnancy Weight lbs Domestic Partner Domestic Partner Phone Father Name Medical Office Scheduler Status 11/19/19 16 1 CLOSED Fetus Data First Name Last Name Admitted to NICU Weight (g) Sex Living Outcome Pediatric Complications Fetus ID Race Codes Race Delivery Type 2976.69 75 M Full Term [id number] Standard Vaginal Delivery Uche Calculation Initial Uche Date Initial Exam Date Initial Exam Provider Initial Ultrasound Date Last Menstrual Period Date Ultra Sound Weeks Gestation 0 Eighteen To Twenty Week Uche Update Ultra Sound Date Fundal Height At Umbil Quickening Date Ultra Sound Latest Weeks Gestation Final Uche Confirmed By Final Uche Confirmed Date Final Uche Date Ultra Sound Latest Days Gestation 0 0 Menstrual History Last Menstrual Date Menses Monthly On Bcp Conception Prior Menses Frequency Hcg Plus Date Menarche Onset Age Delivery Information Delivery Date Delivery Type Labor Anesthesia Weeks Gestation Incision Type Labor Labor Length Hrs Delivered By Post Complications Tubal Sterilization Discharge Date Comments 6 Regional-Ep idural 40 false 12 [facility] Discharge Information Feeding Method Contraceptive Method Maternal HG B and HCT Levels
--- OUTSIDE RECORDS SUMMARY | 2024-12-30 10:50 | XMS_ITS | Clinical Summary ---
Author Organization [facility] Address [address] [place] [address] Care Team Providers Care Tool Machine Shop Supervisor Name Role Phone Aman Romero MD Primary Care Provider Source Comments [facility],non-owned Affiliates and Associated Physician Practices is amultiple site organization consisting of ambulatory clinics and hospital sitesin [place], [place], [place] and [place]. This disclosure is being madepursuant to the Care Everywhere program and may not contain all information available regarding this patient. Last updated 18.[facility] Allergies Active Allergy Reactions Criticality Noted Date Comments Penicillins Anaphylaxis High 01/02/2019 Medications * Be aware that medications may not be up to date on this document. Always verify current medications with the patient. folic acid (FOLVITE) 1 MG tablet Take 1 mg by mouth once daily Active oxyCODONE, immediate release, (ROXICODONE) 5 MG tablet Take 1 tablet by mouth every 6 hours as needed 20 tablet 9 Active Additional Information Patient not taking.Reported on 03/01/2019 ibuprofen (MOTRIN) 600 MG tabletIndicatio ns:pain and cramping Take 1 tablet by mouth every 6 hours as needed for Pain Reasons: pain and cramping 60 tablet 9 Active Additional Information Patient not taking.Reported on 07/31/2023 docusate sodium (COLACE) 100 MG capsuleIndicati ons:Constipatio n Take 1 capsule by mouth 2 times daily as needed for Constipation Reasons: Constipation 60 capsule 2 9 Active Additional Information Patient not taking.Reported on 03/01/2019 Vit-Fe Fumarate-FA ( PLUS) 27-1 MG tabletIndicatio ns: Take 1 tablet by mouth daily with breakfast Reasons: 30 tablet 11 9 Active Additional Information Patient not taking.Reported on 07/31/2023 ferrous sulfate 325 (65 FE) MG tablet Take 1 tablet by mouth once daily 100 tablet 9 Active Additional Information Patient not taking.Reported on 07/31/2023 norethindrone (NOR-QD) 0.35 MG tablet Take 1 tablet by mouth once daily 1 packet 3 9 Active Additional Information Patient not taking.Reported on 07/31/2023 fluconazole (DIFLUCAN) 150 MG tablet Take 1 tablet by mouth once daily Take 1 tablet now, repeat in 72 hours if symptoms still persist 2 tablet 9 Active Additional Information Patient not taking.Reported on 07/31/2023 MV-Min-Fe Fum-FA-DHA ( 1 PO) every 24 hours Active acetaminophen (TYLENOL) 325 MG tablet TK 1 T PO Q 8 H PRN 0 9 Active Active Problems Problem Noted Date Diagnosed Date History of classical section 01/10/2019 Research study patient - [facility] 01/05/2019 Overview (01/05/2019): Enrolled in the [facility] research study. Please call [phone] when delivery is imminent. Threatened labor 01/02/2019 Supervision of other high ri pregnancies, second trimester Encounter for ultrasound Resolved Problems Problem Noted Date Diagnosed Date Resolved Date premature rupture of membranes 10/26/2011 01/03/2019 Chlamydia 10/26/2011 01/03/2019 Overview (10/26/2011): Treated during Trichomoniasis 10/26/2011 01/03/2019 Overview (11/06/2014): Treated during Immunizations Immunization Administration Dates Next Due TDAP (7yrs+) 10/29/2011 Family History Medical History Relation Name Comments Hypertension Maternal Grandmother Stroke Maternal Grandmother Hypertension Mother Relation Name Status Comments Maternal Grandmother Mother Social History Tobacco Use Types Packs/Day Years Used Date Smoking Tobacco: Never Smokeless Tobacco: Never Tobacco Cessation:Counseling Given: Yes Alcohol Use Standard Drinks/Week Comments No 0 (1 standard drink = 0.6 oz pur e alcohol) Comments No Sex and Gender Information Value Date Recorded Sex Assigned at Not on file Legal Sex Female 1:30 PM TRAUMA PROGRAM MANAGER Gender Identity Not on file Sexual Orientation Not on file Last Filed Vital Signs Vital Sign Reading Time Taken Comments Blood Pressure 115/74 07/31/2023 12:25 PM TRAUMA PROGRAM MANAGER Pulse 68 07/31/2023 12:25 PM TRAUMA PROGRAM MANAGER Temperature 36.8 C (98.2 F) 01/10/2019 7:20 AM CDT Respiratory Rate 18 01/10/2019 7:20 AM CDT Oxygen Saturation 100% 01/10/2019 7:20 AM CDT Inhaled Oxygen Concentration - - Weight 77.6 kg (171 lb) 07/31/2023 12:20 PM TRAUMA PROGRAM MANAGER Height 167.6 cm (5' 6) 07/31/2023 12:20 PM TRAUMA PROGRAM MANAGER Body Mass Index 27.6 07/31/2023 12:20 PM TRAUMA PROGRAM MANAGER Plan of Treatment Health Maintenance Due Date Last Done Comments HEPATITIS B VACCINE (1 of 3 - 19+ 3-dose series) 2005 HPV VACCINE (1 - 3-dose SCDM series) 2013 DTAP/TDAP/TD VACCINES (2 - T d or Tdap) 10/28/2021 10/29/2011 COVID-19 VACCINE ( - 2023-2 5 season) 2024 DEPRESSION SCREENING 06/15/2024 INFLUENZA VACCINE (#1) 2025 PAP with HPV 07/31/2028 07/31/2023 ZOSTER VACCINE (1 of 2) 2036 HEPATITIS C SCREENING Completed 07/31/2023 HIV SCREENING Completed 07/31/2023, 01/03/2019 HIB VACCINE Aged Out No longer eligi ble based on patient's age to complete this topic MENINGOCOCCAL (Group B) VACCINE SHARED DECISION-MAKING Aged Out No longer eligible based on patient's age to complete this topic MENINGOCOCCAL GROUPS A/C/Y/W VACCINE Aged Out No longer eligible b ased on patient's age to complete this topic PNEUMOCOCCAL VACCINE Aged Out No long er eligible based on patient's age to complete this topic Procedures Procedure Name Priority Date/Time Associated Diagnosis Comments HEPATITIS C ANTIBODY Routine 07/31/2023 1:00 PM TRAUMA PROGRAM MANAGER Well woman exam with routine gynecological exam PAP IG LB+HPV APTIMA Routine 07/31/2023 1:00 PM TRAUMA PROGRAM MANAGER Well woman exam with routine gynecological exam HIV-1 HIV-2 ANTIBODY + HIV P24 AG PANEL Routine 07/31/2023 1:00 PM TRAUMA PROGRAM MANAGER Well woman exam with routine gynecological exam from Last 3 Months or Most Recently Relevant to Health Maintenance Results * PAP IG LB+HPV APTIMA (07/31/2023 1:00 PM TRAUMA PROGRAM MANAGER) Diagnosis Comment 08/05/2023 11:12 AM TRAUMA PROGRAM MANAGER [facility] Comment: NEGATIVE FOR INTRAEPITHELIAL LESION OR MALIGNANCY. THIS SPECIMEN WAS RESCREENED PART OF OUR EDUCATION ASSISTANT PROGRAM. Specimen Adequacy Comment 024 11:12 AM TRAUMA PROGRAM MANAGER [facility] Comment: Satisfactory for evaluation. Endocervical and/or squamous metaplastic cells (endocervical component) are present. Performed by Comment 08/05/2023 11:12 AM TRAUMA PROGRAM MANAGER [facility] Comment:Sylvain Christianson totechnologist (ASCP) QC Reviewed by Comment 08/05/2023 11:12 AM TRAUMA PROGRAM MANAGER [facility] Comment:Sylvain Garcia totechnologist Comment . 08/05/2023 11:12 AM TRAUMA PROGRAM MANAGER [facility] Note Comment 08/05/2023 11:12 AM TRAUMA PROGRAM MANAGER [facility] Comment: The Pap smear is a screening test designed to aid in the detection of premalignant and malignant conditions of the uterine cervix. It is not a diagnostic procedure and should not be used as the sole means of detecting cervical cancer. Both false-positive and false-negative reports do occur. IGL[facility] CPT Code Automation Comment 08/05/2023 11:12 AM TRAUMA PROGRAM MANAGER [facility] Comment: This liquid based ThinPrep(R) pap test was screened with the use of an image guided system. Human papillomavirus Aptima Negative Negative 08/05/2023 11:12 AM TRAUMA PROGRAM MANAGER [facility]) Comment: This nucleic acid amplification test detects fourteen high-risk HPV types (16,18,31,33,35,39,45,51,52,56,58,59,66,68) without differentiation. Pathology/Cytolo gy PART OF UTERINE CERVIX / Unknown Collection / Unknown 07/31/2023 1:00 PM TRAUMA PROGRAM MANAGER 07/31/2023 1:16 PM TRAUMA PROGRAM MANAGER Narrative [facility] ([facility]) - 08/05/2023 11:12 AM TRAUMA PROGRAM MANAGER Performed at: 01 - [address] [id number] Pediatric Audiologist: Norah Peres MD, Phone: [phone] Performed at: [address] [id number] Pediatric Audiologist: Norah Peres MD, Phone: [phone] Specimen Comment: No. of containers..01 ThinPrep Vial us Johnny Johnson MD LAB - PATHOLOGY/CYTOLOGY ORDER KOREY Final Result Performing Organization Address City/[facility]/ZIP Co de Phone Number [facility] [address] [place] [address] * HIV-1 HIV-2 ANTIBODY + HIV P24 AG PANEL (07/31/2023 1:00 PM TRAUMA PROGRAM MANAGER) HIV1/2 Ab + P24 Ag Non Reactive Non Reactive 07/31/2023 2:12 PM TRAUMA PROGRAM MANAGER [facility] Blood BLOOD SPECIMEN / Unknown Venipuncture / Unknown 07/31/2023 1:00 PM TRAUMA PROGRAM MANAGER 07/31/2023 1:15 PM TRAUMA PROGRAM MANAGER Narrative [facility] - 07/31/2023 2:12 PM TRAUMA PROGRAM MANAGER No Laboratory evidence of HIV infection. Johnny Johnson MD LAB - CHEMISTRY ORDERABLES Fin al Result Performing Organization Address City/[facility]/ZIP Co de Phone Number [facility] [address] [place] [address] * HEPATITIS C ANTIBODY (07/31/2023 1:00 PM TRAUMA PROGRAM MANAGER) HCV Antibody Screen Non Reactive Non Reactive 07/31/2023 2:11 PM TRAUMA PROGRAM MANAGER [facility] Blood BLOOD SPECIMEN / Unknown Venipuncture / Unknown 07/31/2023 1:00 PM TRAUMA PROGRAM MANAGER 07/31/2023 1:15 PM TRAUMA PROGRAM MANAGER Narrative [facility] - 07/31/2023 2:11 PM TRAUMA PROGRAM MANAGER Non Reactive - Antibodies to Hepatitis C virus (HCV) were not detected, result does not exclude early acute HCV infection. Johnny Johnson MD LAB - CHEMISTRY ORDERABLES [facility] al Result [facility] [address] [place] [address] from Last 3 Months or Most Recently Relevant to Health Maintenance Insurance [facility] [address] [place] [address] [facility] Advance Directives * Full Code (Latest Code Status on File) Date Activated Date Inactivated Comments 01/08/2019 3:58 AM 01/10/2019 2:24 PM * Full Code Date Activated Date Inactivated Comments 01/02/2019 7:13 PM 01/08/2019 3:58 AM * Full Code Date Activated Date Inactivated Comments 01/02/2019 6:55 PM 01/02/2019 7:13 PM * FULL RESUSCITATION Date Activated Date Inactivated Comments 10/26/2011 2:35 PM 10/30/2011 2:36 AM Care Teams Tool Machine Shop Supervisor Relationship Specialty Start Date End Date Aman Romero MD [address] [place], [place] [id number] PCP - General Internal Medicine 07/31/23
--- OUTSIDE RECORDS SUMMARY | 2024-12-30 10:50 | XMS_ITS | Data Portability ---
Author Organization [facility] Address [address] [place] [address] Care Team Providers Care Gasket Maker Name Role Phone MYRTLE NUNEZ Primary Care Provider Assessment Encounter Date Assessment Date Assessment LastModified by Organization Details LastModified Time 12/09/2024 12/09/2024 Annual gynecological exam performed. Patient will come back in a year unless there are new symptoms. [email or web address] Not available 12/09/2024 12:41:15 Plan of Treatment Reminders Order Date Submit Date Provider Last Modified By Organization Details Last Modified Time Details Appointments None recorded. Lab hbcab (hepatitis B core Ab) igm, serum 2024 025 [facility] (Lab), [address] [place], [address], 5 15:16:22 HBsAg (hepatitis B surface Ag), serum 2024 025 [facility] (Lab), [address] [place], [address], 5 15:16:40 hepatitis C virus Ab, serum 2024 025 [facility] (Lab), [address] [place], [address], 5 15:17:23 HIV 1+2 AB + HIV 1 p24 Ag, qualitative immunoassay , serum 2024 025 [facility] (Lab), [address], [place], [address], 5 15:17:41 RPR (rapid plasma reagin), serum 2024 025 [facility] (Lab), [address], [place], [address], 5 15:16:58 pap, IG + HR HPV - HPV regardless but if HPV is positive need subtyping 16,18/45 add sti to pap gc/ct/trich 2024 025 [facility] (Lab), [address], [place], [address], 5 15:17:58 Referral None recorded. Procedures None recorded. Surgeries None recorded. Imaging MAMMO, diagnostic, digital, bilateral 2024 [facility], [address], [place], [address], 5 04:09:13 US, breast, bilateral, complete 2024 [facility], [address], [place], [address], 5 04:09:13 Medication Orders None recorded. Patient TargetsNo targets recorded. Patient InstructionsNo instructions recorded. Reason for Referral None Reported. Results Created Date Observation Date Name Description Value Unit Range Abnormal Flag Note LastModifiedBy Organization Detail LastModifiedTime 12/10/1912/09/2024 HIV 1/2 ANTIG EN/AN TIBOD Y, REFLE X CONFI RMATI ON HIV antigen/anti body Nonrea ctive nonrea ctive : Routi ne : ENDOC ERVIC AL/CE RVICA L : add sti to pap gc/ct /tric h HIV-1 antig en and HIV-1 /HIV- 2 antib odies were not detec chandu. No labor atory evide nce of HIV infec tion. Not Available [facility] (Lab) [address], [place], [address], 12/13/2024 11:56:08 12/10/19 25 12/09/2024 HEPAT ITIS C ANTIB JORDAN SCREE N, REFLE X TO CONFI RMATI ON hepatitis C antibody Non-re active non-re active Antib odies to HCV Not Detec chandu, does not exclu de the possi bilit y of expos ure to HCV. : Routi ne : ENDOC ERVIC AL/CE RVICA L : add sti to pap gc/ct /tric h Not Available [facility] (Lab) [address], [place], [address], 12/13/2024 11:56:09 12/10/19 25 12/09/2024 HEPAT ITIS B SURFA CE ANTIG EN hepatitis B surface antigen Non-re active non-re active This assay was perfo rmed using [employer] n reage nts and test kits. Value s obtai lorie with other assay metho ds or kits canno t be used inter patel eably . : Routi ne : ENDOC ERVIC AL/CE RVICA L : add sti to pap gc/ct /tric h Not Available [facility] (Lab) [address], [place], [address], 12/13/2024 11:56:09 12/10/19 25 12/09/2024 RPR SCREE N, REFLE X TITER /CONF IRMAT ION RPR qualitative Nonrea ctive nonrea ctive : Routi ne : ENDOC ERVIC AL/CE RVICA L : add sti to pap gc/ct /tric h Not Available [facility] (Lab) [address], [place], [address], 12/13/2024 11:56:09 12/10/19 25 12/09/2024 HEPAT ITIS B CORE, IGM hepatitis B core IgM antibody Non-re active non-re active Antib odies to Hepat itis B Core IgM not detec chandu. Does not exclu de the possi bilit y of expos ure to or infec tion with HBV. Corre late with other Hepat itis B serol ogies . : Routi ne : ENDOC ERVIC AL/CE RVICA L : add sti to pap gc/ct /tric h Not Available [facility] (Lab) [address], [place], [address], 12/13/2024 11:56:10 12/10/19 25 12/09/2024 IMAGE GUIDE D PAP AND HPV REGAR DLESS image guided Pap, HPV regardless of Pap result SEE RESULT S BELOW CASE REPOR T: Cytol ogy Gynec ologi zeina Repor t Case: [id number] Autho addi lindsay Provi brennon: Idalia Martin, NILO Gregorio cted: 12/09 1303 Order ing Locat ion: [place] [facility] Recei shannan: 12/10 0219 First Scree n: Gayle Vines ret, CT Speci men: Scree ema Pap - Image d, Cervi x STATE MENT OF ADEQU ACY: Satis facto ry for evalu ation Trans forma tion zone compo nent prese nt ----- ----- ----- ----- ----- ----- ----- ----- ----- ----- ----- ----- ----- ----- ----- ----- ----- ---- FINAL DIAGN OSIS: Negat jass for Intra epith elial Majo lux or Prabhu schwartz ([facility]) . Elect dinora hook d by Gayle Vines ret, CT on 025 at 1052 CDT ----- ----- ----- ----- ----- ----- ----- ----- ----- ----- ----- ----- ----- ----- ----- ----- ----- ---- HPV RESUL TS: HPV mRNA E6/E7 : No HPV mRNA Detec chandu NOTE: This high risk HPV mRNA assay detec ts fourt een high- risk HPV types (16, 18, 31, 33, 35, 39, 45, 51, 52, 56, 58, 59, 66, 68) witho ut diffe renti ation . COMME NT: This speci men was revie wed by a Cytot echno logis t and/o r Patho logis t (as indic ated in this repor t) after evalu ation using the Thinp rep Imagi ng Syste m. CLINI ZEINA INFOR MATIO N: Menst rual Statu s: LMP (if appli cable ): Clini zeina Histo ry/Pr eviou s Pap: Type of Neopl mayi (if appli cable ): Signi fican t Clini zeina Findi ngs: Other Histo ry: Hormo leo (if appli cable ): PAP EDUCA PURA L NOTE: The Pap Test is a scree ema test with an inher ent false negat jass rate. Liqui d-bas ed sampl ing may decre ase, but will not elimi amanda, false negat jass resul ts. A negat jass resul t does not precl ude the prese nce and/o r devel opmen t of disea se, since the prese nce of abnor mal cells in the sampl e depen ds on the locat ion of the lesio n and sampl ing techn ique. William nued regul ar scree ema is the best metho d of cance r preve ntion . If repor chandu cytol ogic findi ng do not corre late with physi zeina and/o r histo rical findi ngs, furth er inves tigat ion is recom jax d, as clini tommy bardales nted. Not Available [facility] (Lab) [address], [place], [address], 12/13/2024 11:56:10 12/10/1912/09/2024 CT/GC AND TRICH OMONA S VAGIN RIO (RRNA ), THINP REP VIAL CT/GC and trichomonas vaginalis (rrna), thinprep SEE RESULT S BELOW negati ve CHLAM YDIA TRACH OMATI S, PCR: Negat jass NEISS ERIA GONOR RHOEA E, PCR: Negat jass TRICH OMONA S VAGIN RIO RIBOS OMAL RNA (RRNA ): Negat jass Not Available [facility] (Lab) [address], [place], [address], 12/13/2024 11:56:10 Result Notes None recorded. Procedures Surgical History Date Name Laterality Status Provider Name and Address Organization Details Recorded Time section completed [facility] 12/09/2024 12:51:14 Imaging Results None recorded. Procedure Notes None recorded. Medical Equipment None Reported. Allergies Allergen ID Allergen Name Allergen Category Reaction Reaction Severity Criticality Documentation Date Start Date Code Code System Note Provider Name and Address Organization Details Recorded Time 31163 Product containin g penicilli n (product) medicatio n Not available Not available Not available 12/09/2024 59952 8001 SNOMED [facility] 12:44:10 Medications Not known to be on any medication Vitals Date Recorded Body height Body mass index (BMI) Body weight Systolic And Diastolic Provider Name and Address Organization Details Last Updated DateTime 12/09/2024 167.64 cm 26.5 kg/m2 04646.15 g 119/86 mm[Hg] [facility] 12/09/2024 12:43:56 Social History Question Answer Notes LastModified by Organizat ion Details LastModified Time Tobacco Smoking Status Never Smoker [facility] 12/09/2024 12:50:56 In The 14 Days Before Symptom Onset, Have You Had Close Contact With A Laboratory-confirm ed COVID-19 While That Case Was Ill? No Information n ot available 12/09/2024 In The 14 Days Before Symptom Onset, Have You Had Close Contact With A Person Who Is Under Investigation For COVID-19 While That Person Was Ill? No Information not available 12/09/2024 Have You Been To An Area Known To Be High Risk For COVID-19? No Information not available 12/09/2024 Sex: Unknown Functional Status None recorded. Mental Status None recorded. Family History Relationship Description Onset Age of this Age Resolved Age Notes LastModified by Organization Details LastModified Time Father No current problems or disability Not available 12/09 12:50:43 Mother No current problems or disability [email or web address] Not available 12/09 12:50:44 Medical History Condition Response Allergies (Food, seasonal, environmental ) N Other N Breast Cancer N Drug/Latex Allergies/Reactions N Blood Transfusion N Dermatologic Disorders N Lung Disease N Defects or Inherited Disease N Breast Problem N Gestational Diabetes N Hematologic disorders N Anesthesia Complications N History of STI N Deep Vein Thrombosis N Polycystic ovary syndrome N Anxiety Disorder N Autoimmune disease N Arthritis N Infertility N Polyps N Acid Reflux (GERD) N History of abnormal pap N Cancer N Stroke N Varicosities N Neurologic/Epilepsy N Endometriosis N High Cholesterol N Headaches N Fibromyalgia N Kidney Disease N Heart Problems N Kidney or Bladder Problems N Thyroid Problems N GI Problems N Eating Disorder N Anemia N Art (IVF or FET) N Psychiatric Illness N Ovarian Cancer N Diabetes N Pulmonary (TB, Asthma) N Hepatitis/Liver Disease N No Past Medical History N Eczema N Urinary Tract Infection N Abuse/Domestic Violence N Asthma N Trauma/Violence N Depression/ depression N Heart Disease N Pre-Eclampsia N Hypertension N Osteoporosis N Thrombophilias N Gynecological History Statement/Question Response Abnormal Pap N Flow Light Date of LMP 11/28/2024 Was last menstrual period normal Y STIs/STDs Y HPV Vaccine N Duration of Flow (days) 4 Current Control Method IUD Are cycles usually normal Y Date of Last Colonoscopy Frequency of Cycle (Q days) 28 Sexually Active? Y Menses Monthly Y Date of DEXA bone scan Age of first menstrual cycle 14 Date of Last Pap Smear Sexual Problems? N Desired Control Method IUD LMP Definite Obstetrics History GPAL:G 3 P 1 2 0 3 Type Value Full Term 1 Premature 2 Living 3 Total 3 Past Encounters Encounter ID Performer Location Encounter Start Date Encounter Closed Date Diagnosis/Indication Diagnosis SNOMED-CT Code Diagnosis ICD10 Code Diagnosis Note [id number] ANNETTE [facility] [place] [address] [address] 12/09/2024 12:19:28 12/12/2024 09:34:10 Gynecologic examination 72370849 Z01.419 WWEBC - IUD (inserted 2019). She is going to obtain records to determine which IUD she has to verify expiration date. If unable to obtain records rec removal/re placement now d/t unknown expiration . Condom use encouraged Pap - done todaySTI screen - gc/ct/tric h testing added to papHIV/Hep B&C/Syphil is testing ordered per requestRou yanci labs - PCPRTC in 1 yr or sooner if needed It is strongly advised to have an annual flu shot and up can obtain at most pharmacies . If you have not had a TDap shot in the last 10 years you should obtain one as well. Discussed with patient & provided with informatio n regarding the HPV vaccine if applicable . Encourage safe sexual practices, to use condoms and limit partners if not already in a monogamous relationsh ip. Do monthly self breast exams. BRCA testing is now available for patients with strong genetic history of female cancer. If interested contact the office. Engage in regular exercise. Avoid tobacco and illicit drugs. This lifestyle behavior pattern will lead to less health conditions and longer life span. If BMI greater than 25 dietary consult advised. Questions answered. Lump in bi lateral breasts 8970646520 7644825 N63.10 N63.20 bilateral breast lumps, order given for diagnostic mammogram and u/s Venereal d isease screening 282210965 Z11.3 Sexually t ransmitted infectious disease 5958130 A64 Health Concerns Section Related Observation LastModified by Organization Detai ls LastModified Time None Recorded Concern Status LastModified by Organization Details LastModified Time None Recorded Advance Directives Directive None Recorded Payers Insurance Date Sequence Insurance Name Policy Number Policy Byrne Covered Member ID Byrne Member ID Guarantor Name 12/09/2024 1 [facility] - DOS ON OR AFTER 20 (MEDICAID REPLACEMENT - HMO) Josie Grimes [id number] Thomas Grimes 12/14/2024 2 [place] [employer] [place] [employer] Josie Grimes [id number] Thomas Grimes 12/14/[address] [facility] [id number] Hitesh Grimes [id number] Thomas Grimes Notes Date Note Type Note Provider Name and Address Organization Details Recorded Time 12/09/2024 text/html Annual GYNReport ed bypatient.Menstrua l cycle:Normal menses Urinary symptoms:No hematuria; No incontinence Vulva:No genital lesion Vagina:Normal vaginal discharge Breast:No breast pain; No breast lump; No nipple discharge Current Contraception:Sati sfied with current contraception; Intrauterine device (iud) Sexual complaints:No sexual complaints; No pain during intercourse; Normal libido Menopausal Symptoms:No menopausal symptoms; Normal vaginal lubrication Psychological symptoms:No depression; No anxiety; No PMDD Preventive measures:Encourage self breast examination; Encourage regular exercise; Encourage no tobacco use; Encourage regular mammograms starting age 40Notes:39yo wweBc - IUD (unsure which IUD, inserted in 2018)last pap around 2020, wnl per ptwould like STI testing done today ANNETTE [facility] [address], [place], [address], [facility] 12/12/2024 09:16:22 OBGyn Episode Ob Episode Information Episode Created Date Number of Fetuses Patient Bloodtype Patient rh Status Prepregnancy Weight lbs Domestic Partner Domestic Partner Phone Father Name Dog License Officer Supervisor Status 12/10/19 25 1 CLOSED Fetus Data First Name Last Name Admitted to NICU Weight (g) Sex Living Outcome Pediatric Complications Fetus ID Race Codes Race Delivery Type Prematur e [id number] Vaginal Delivery Uche Calculation Initial Uche Date [...] Complications Tubal Sterilization Discharge Date Comments 2 32 Discharge Information Feeding Method Contraceptive Method Maternal HG B and HCT Levels Ob Episode Information Episode Created Date Number of Fetuses Patient Bloodtype Patient rh Status Prepregnancy Weight lbs Domestic Partner Domestic Partner Phone Father Name Dog License Officer Supervisor Status 12/10/19 25 1 CLOSED Fetus Data First Name Last Name Admitted to NICU Weight (g) Sex Living Outcome Pediatric Complications Fetus ID Race Codes Race Delivery Type Full Term [id number] Vaginal Delivery Uche Calculation Initial Uche Date [...] Complications Tubal Sterilization Discharge Date Comments 6 Discharge Information Feeding Method Contraceptive Method Maternal HG B and HCT Levels Ob Episode Information Episode Created Date Number of Fetuses Patient Bloodtype Patient rh Status Prepregnancy Weight lbs Domestic Partner Domestic Partner Phone Father Name Dog License Officer Supervisor Status 12/10/19 25 1 CLOSED Fetus Data First Name Last Name Admitted to NICU Weight (g) Sex Living Outcome Pediatric Complications Fetus ID Race Codes Race Delivery Type Prematur e [id number] Primary Uche Calculation Initial Uche Date Initial Exam [...] Complications Tubal Sterilization Discharge Date Comments 9 24 Discharge Information Feeding Method Contraceptive Method Maternal HG B and HCT Levels
== END 2024-12-30 10:47 | disposition home or self-care (01) ==
PROVIDERS: PCP Internal Medicine Infectious Disease; Visit Provider Nurse Practitioner
DX: R92.8 Other abnormal and inconclusive findings on diagnostic imaging of breast (principal); N63.10 Unspecified lump in the right breast, unspecified quadrant; N63.20 Unspecified lump in the left breast, unspecified quadrant
CPT/HCPCS: 76641; 77062; 77066; G0279

== ENCOUNTER 2025-01-02 15:38 | Emergency (ER) | payer OTHER, MEDICAID, SELFPAY ==
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
[2025-01-02 15:46] VITALS: BP 123/75; PULSE 67; RESP 16; TEMP 36.6; O2SAT 99
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
== END 2025-01-02 17:00 | disposition home or self-care (01) ==
PROVIDERS: Emergency Provider Nurse Practitioner Family; PCP Internal Medicine Infectious Disease
DX: G44.209 Tension-type headache, unspecified, not intractable (principal); S16.1XXA Strain of muscle, fascia and tendon at neck level, initial encounter; V59.40XA Driver of pick-up truck or van injured in collision with unspecified motor vehicles in traffic accident, initial encounter; F17.290 Nicotine dependence, other tobacco product, uncomplicated
CPT/HCPCS: 72050; 99213; G0463